=== PATIENT | female | born 1935 | race Caucasian/White ===

== ENCOUNTER 2018-02-19 05:41 | Inpatient (IN) | payer MEDICARE, OTHER ==
[2018-02-19] VITALS (13 sets, daily range): BP systolic 92–127; BP diastolic 60–87; BMI 24.7
[~2018-02-19] VITALS: Ht 157.5 cm; Wt 61.2 kg
--- NOTE | ~2018-02-19 | HEMODYNAMI ---
PATIENT:SRIRAM JEAN MEDICAL RECORD: [id number] : 37 [facility]# [id number] ADMISSION DATE: 02/19/18 Generatedon:02/19/20188:22 Patient name: SRIRAM JEAN Patient #: [id number] SSN: : 1935 Date of study: 02/19/2018 Page: Of Hemodynamic Procedure Report Patient Data Patient Demographics Procedure consent was obtained First Name: SRIRAM Gender: Female Last Name: TED : 1935 Patient #: [id number] Age: 82 year(s) Race: Unknown Additional ID: [id number] Contact details Address: [facility].UN[facility] State: [place] City: [place] Zip code: [address] Past Medical History Allergies: No known allergies Admission Admission Data Admission Date: 02/19/2018 Admission Time: 7:40 Room #: [facility] Lab Results Lab Result Date: 02/19/2018 Lab Result Time: 0:00 Biochemistry Name Units Result Min Max BUN mg/dl 19 --(----)*- 7 18 Creatinine mg/dl 1 --(--*-)-- 0.6 1.3 CBC Name Units Result Min Max Hemoglobin g/dl 11.9 *-(----)-- 13.5 17.5 Procedure Procedure Types Cath Procedure Diagnostic Procedure LHC LH w/Coronaries Sedation Charges Moderate Sedation up to 30 minutes PCI Procedure Coronary Stent Coronary Stent Initial Procedure Description Procedure Date Procedure Date: 02/19/2018 Procedure Start Time: 7:40 Procedure End Time: 8:22 Procedure Staff Name Function Morro Ash MD Performing Physician Shanthi Puente RT Scrub Nona Moss RT Monitor Jeremy Wren RN Nurse Procedure Data Cath Procedure Fluoroscopy Diagnostic fluoroscopy Total fluoroscopy Time: time: 10.5 min 10.5 min Diagnostic fluoroscopy Total fluoroscopy dose: dose: 1381 mGy 1381 mGy Contrast Material Contrast Material Type Amount (ml) Isovue 300 167 Entry Location Entry Primary Successful Side Size Upsize Upsize Entry Closure Succes sful Closure Location (Fr) 1 (Fr) 2 (Fr) Remarks Device Remarks Femoral Right 5 Fr 6 Fr Exoseal artery Short Estimated blood loss: 10 ml Diagnostic catheters Device Type Used For End Catheter Placement MULTIPACK JL 4.0 5Fr Left Coronary catheter Angiography MULTIPACK 3DRC 5Fr Right Coronary catheter Angiography MULTIPACK Pigtail 5 Fr LV Angiography catheter Procedure Complications No complications Procedure Medications Medication Administration Route Dosage Oxygen NC 2 l/min Lidocaine 2% added to field 20 Heparin Flush Bag added to field 2 bags (1000units/500ml NS) 0.9% NaCl I.V. 100 ml/hr Versed I.V. 0.5 mg Fentanyl I.V. 25 mcg Heparin Bolus I.V. 4000 units Nitroglycerin IC/IA I.C. 100 mcg Nitroglycerin IC/IA I.C. 100 mcg Integrilin (Bolus I.V. 4.5 ml 2mg/ml) Integrilin (Bolus wasted 5.25 ml 2mg/ml) Plavix P.O. 600 mg Hemodynamics Rest Heart Rate: 96 (bpm) Pressure Samples Time Site Value (mmHg) Purpose Heart Use Rate(bpm) 7:47 LV 107/8,32 EDP 92 7:48 AO 110/67(84) Pullback 91 7:48 LV 110/7,17 Pullback 91 Gradients Valve Time Site 1 Site 2 Mean SEP/DFP Peak To Heart Use (mmHg) (sec/min) Peak Rate (mmHg) (bpm) Aortic 7:48 LV AO 0 91 110/7,17 110/67(84) Calculations Valve P-P Mean Valve Index Valve Source Name Gradient Area Flow (cm2) Aortic 0 0 Snapshots Pre Cath Intra NCS Post Cath Vital Signs Time Heart Resp SPO2 etCO2 NIBP (mmHg) Rhythm Pain Sedation Rate (ipm) (%) (mmHg) Status Level (bpm) 7:34:15 97 22 98 16.6 107/76(104) NSR 0 (11) 10(A) , No pain 7:38:53 95 30 98 21.1 104/47(84) NSR 0 (11) 10(A) , No pain 7:43:26 95 25 90 27.2 102/69(82) NSR 0 (11) 10(A) , No pain 7:48:00 93 22 91 18.1 95/63(79) NSR 0 (11) 10(A) , No pain 7:52:33 95 21 94 24.2 101/63(82) NSR 0 (11) 10(A) , No pain 7:57:03 94 22 92 20.4 94/72(80) NSR 0 (11) 10(A) , No pain 8:01:35 94 22 94 24.1 100/55(73) NSR 0 (11) 9(A) , No pain 8:06:08 92 20 86 12 102/59(71) NSR 0 (11) 9(A) , No pain 8:10:40 93 19 93 29.5 100/62(83) NSR 0 (11) 9(A) , No pain 8:15:13 95 23 92 27.2 102/71(79) NSR 0 (11) 10(A) , No pain 8:20:12 97 27 94 23.4 Measuring NSR 0 (11) 10(A) , No pain 8:20:22 96 21 94 20.4 100/62(83) NSR 0 (11) 10(A) , No pain Medications Time Medication Route Dose Verified Delivered Reason Notes Effectiveness by by 7:32:10 Oxygen NC 2 Morro Jeremy used for l/min Mihir Wren nurse practitioner 7:33:17 Lidocaine 2% added 20ml Morro Jeremy for local to vial Mihir Wren anesthetic field RN 7:33:22 Heparin Flush added 2 Morro Jeremy used for Bag to bags Mihir Wren procedure (1000units/500ml field RN NS) 7:33:30 0.9% NaCl I.V. 100 Morro Jeremy Per physician ml/hr Mihir Wren RN 7:36:45 Versed I.V. 0.5 Morro Jeremy for sedation mg Mihir Wren RN 7:36:54 Fentanyl I.V. 25 Morro Jeremy for sedation mcg Mihir Wren RN 7:53:02 Heparin Bolus I.V. 4000 Morro Jeremy for units Mihir Wren anticoagulation RN 8:03:32 Nitroglycerin I.C. 100 Morro Morro for IC/IA mcg Mihir Ash MD vasodilation 8:12:57 Nitroglycerin I.C. 100 Morro Morro for IC/IA mcg Mihir Ash MD vasodilation 8:18:00 Integrilin I.V. 4.5 Morro Jeremy for (Bolus 2mg/ml) ml Mihir Wren antiplatelet RN therapy 8:18:12 Integrilin wasted 5.25 Morro Jeremy to sharp's (Bolus 2mg/ml) ml Mihir Wren RN 8:18:35 Plavix P.O. 600 Morro Jeremy for mg Mihir Wren antiplatelet RN therapy Procedure Log Time Note 7:15:01 Time tracking: Regular hours (M-F 7:00 - 5:00) 7:15:04 Plan of Care:Hemodynamics will remain stable., Cardiac rhythm will remain stable., Comfort level will be maintained., Respiratory function will remain adequate., Patient/ family verbilizes understanding of procedure., Procedure tolerated without complication., Recovers from procedure without complications.. 7:15:05 Signed procedure consent form obtained from patient. 7:15:10 H&P Date Dictated: 02/19/2018 ER History on chart.. 7:16:19 Jeremy Wren RN sent for patient. Start room use. 7:18:04 Patient allergic to No known allergies 7:20:27 Lab Result : Creatinine 1 mg/dl 7:20:27 Lab Result : BUN 19 mg/dl 7:20:27 Lab Result : Hemoglobin 11.9 g/dl 7:23:42 Patient received from ED to CCL 1 Alert and oriented. Tansferred to table in Supine position. 7:23:43 Warm blankets applied, and nena hugger turned on for patient comfort. 7:23:44 Correct patient and procedure confirmed by team. 7:23:45 ECG and BP/O2 sat monitors applied to patient. 7:32:10 Oxygen 2 l/min NC was administered by Jeremy Wren RN; used for procedure; 7:33:17 Lidocaine 2% 20ml vial added to field was administered by Jeremy Wren RN; for local anesthetic; 7:33:22 Heparin Flush Bag (1000units/500ml NS) 2 bags added to field was administered by Jeremy Wren RN; used for procedure; 7:33:30 0.9% NaCl 100 ml/hr I.V. was administered by Jeremy Wren RN; Per physician; 7:33:30 Vital chart was started 7:34:07 Rhythm: sinus rhythm 7:34:11 Pre-procedure instructions explained to patient. 7:34:12 Pre-op teaching completed and patient verbalized understanding. 7:34:23 Family unavailable. 7:34:25 Patient NPO since Midnight. 7:34:31 Is the patient allergic to Iodine/contrast media? No. 7:34:33 Is patient on blood thinner?No 7:34:37 Patient diabetic? No. 7:34:46 Previous problem with sedation/anesthesia? No ? 7:34:48 Snore? No 7:34:48 Sleep apnea? No 7:34:49 Deviated septum? No 7:34:50 Opens mouth fully? Yes 7:34:51 Sticks out tongue? Yes 7:34:52 Airway obstruction? No ? 7:34:55 Dentures? Yes IN 7:34:59 Pre procedure: right dorsailis pedis pulse 1+ Palpable, but thready & weak; easily obliterated 7:35:01 Patient pain scale 0/10 ?. 7:35:12 IV patent on arrival in right antecubital with 0.9% NaCl at [facility]. 7:35:15 Lab results completed and on chart. 7:35:17 Right groin area was prepped with chlora-prep and draped in sterile fashion 7:35:18 Alarms reviewed by R. N. 7:35:18 Sharps counted by scrub and verified by R.N. 7:35:20 Final Timeout: patient, procedure, and site verified with staff and physician. All members of the team are in agreement. 7:35:21 Right groin site verified by team. 7:35:26 Physical assessment completed. ASA score P 2 - A patient with mild systemic disease as per Morro Ash MD. 7:35:30 Sedation plan: IV Moderate Sedation Medication:Versed, Fentanyl 7:36:45 Versed 0.5 mg I.V. was administered by Jeremy Wren RN; for sedation; 7:36:49 Use device set Femoral Dx 7:36:50 ACIST Syringe (42603) opened to sterile field. 7:36:50 Bag Decanter (2002S) opened to sterile field. 7:36:51 Medline Cath Pack ([id number]) opened to sterile field. 7:36:52 DIAGNOSTIC WIRE .035 260cm J wire (790815) opened to sterile field. 7:36:53 ACIST Hand Control (70141) opened to sterile field. 7:36:54 Fentanyl 25 mcg I.V. was administered by Jeremy Wren RN; for sedation; 7:36:54 ACIST Manifold (93299) opened to sterile field. 7:36:55 DIAGNOSTIC Multipack 5Fr catheter set (UI3222) opened to sterile field. 7:36:56 Tegaderm 4 x 4 (1626W) opened to sterile field. 7:36:57 SHEATH Prelude 5Fr 0.035 (DLN-8P-28-035) opened to sterile field. 7:40:26 Procedure started. 7:40:26 Full Disclosure recording started 7:40:32 Local anesthetic to right femoral artery with Lidocaine 2% by Morro Ash MD.INITIAL ACCESS ONLY 7:40:43 A 5 Fr sheath was inserted into the Right Femoral artery 7:40:45 Zero performed for pressure channel P1 7:40:57 Zero performed for pressure channel P1 7:43:05 A MULTIPACK JL 4.0 5Fr catheter was advanced over the wire and used for Left Coronary Angiography. 7:43:26 Baseline sample Acquired. 7:44:40 Catheter removed. 7:44:55 A MULTIPACK 3DRC 5Fr catheter was advanced over the wire and used for Right Coronary Angiography. 7:46:24 Catheter removed. 7:46:33 A MULTIPACK Pigtail 5 Fr catheter was advanced over the wire and used for LV Angiography. 7:46:37 Use device set ASH PCI 7:46:39 SHEATH Prelude 6Fr 0.035 (JPN-6R-22-035) opened to sterile field. 7:46:43 TUBING High Pressure Extension Tubing (Ash) ([id number]) opened to sterile field. 7:46:44 INFLATOR Merit BasixCompak (UJ2975) opened to sterile field. 7:46:46 BMW 300cm [place] 2 J wire ([id number]) opened to sterile field. 7:46:50 GUIDE 6FR XBLAD 3.5 catheter ([id number]) opened to sterile field. 7:48:20 LV gram done using HILL 7:48:25 EF : 35 % 7:48:27 Injector settings: Ml/sec: 10, Volume: 20, 7:49:05 Catheter removed. 7:49:13 Sheath upsized to a 6 Fr Short. 7:51:16 6 Fr XBLAD 3.5 guide catheter was inserted over the wire 7:52:42 BMW wire advanced. 7:53:02 Heparin Bolus 4000 units I.V. was administered by Jeremy Wren RN; for anticoagulation; 7:57:58 Inflate balloon Inflation number: 1 A EMERGE OTW 2.0 x 15 balloon ([id number]) was prepped and advanced across the Prox LAD, then inflated to 10 KARLA for 0:24 (min:sec). 8:00:01 Balloon removed over the wire. 8:02:31 Place stent Inflation Number: 2 A INTEGRITY OTW 2.75 X 14 stent ([id number]) was prepped and advanced across the Prox LAD. The stent was deployed at 12 KARLA for 0:10 (min:sec). 8:03:32 Nitroglycerin IC/IA 100 mcg I.C. was administered by Morro Ash MD; for vasodilation; 8:06:54 Stent catheter was removed intact over wire. 8:11:41 Place stent Inflation Number: 3 A INTEGRITY OTW 2.25 X 14 stent ([id number]) was prepped and advanced across the Prox LAD. The stent was deployed at 10 KARLA for 0:17 (min:sec). 8:12:14 Stent catheter was removed intact over wire. 8:12:57 Nitroglycerin IC/IA 100 mcg I.C. was administered by Morro Ash MD; for vasodilation; 8:13:47 Wire removed. 8:13:48 Guide catheter removed. 8:13:56 Sheath removed intact; hemostasis achieved with Exoseal to the Right Femoral artery. 8:14:02 EXOSEAL 6Fr (EX600) opened to sterile field. 8:14:06 Procedure ended.(Physican Out) 8:14:22 Fluoroscopy time 10.50 minutes. 8:14:26 Flurop Dose total: 1381 8:: Fluoroscopy dose: 1381 mGy 8:14:32 Contrast amount:Isovue 300 167ml. 8:14:33 Sharps counted by scrub and verified by R.N. 8:14:34 Insertion/operative site no bleeding no hematoma. 8:14:37 Post-op/insertion site Right Femoral artery dressed using a 4 x 4 and Tegaderm. 8:15:25 Post right femoral artery:stable, clean and dry 8:15:27 Post Procedure Pulses reassessed and unchanged 8:15:46 Post-procedure physical assessment completed. ASA score P 2 - A patient with mild systemic disease as per Morro Ash MD. 8:15:48 Post procedure rhythm: unchanged. 8:15:51 Estimated blood loss: 10 ml 8:15:52 Post procedure instruction explained to patient.Patient verbalizes understanding. 8:15:53 Patient needs reinforcement of post procedure teaching. 8:16:53 Procedure type changed to Cath procedure, Diagnostic procedure, LHC, LHC w/Coronaries, Sedation Charges, Moderate Sedation up to 30 minutes, PCI procedure, Coronary Stent, Coronary Stent Initial 8:17:22 Procedure Complication : No complications 8:17:24 See physician's report for complete and final results. 8:18:00 Integrilin (Bolus 2mg/ml) 4.5 ml I.V. was administered by Jeremy Wren RN; for antiplatelet therapy; 8:18:12 Integrilin (Bolus 2mg/ml) 5.25 ml wasted was administered by Jeremy Wren RN; to sharp's; 8:18:35 Plavix 600 mg P.O. was administered by Jeremy Wren RN; for antiplatelet therapy; 8:18:47 Procedure and supply charges have been captured, reviewed, submitted and are correct. 8:20:35 Vital chart was stopped 8:22:08 Report given to PCU. 8:22:11 Patient transfered to PCU with Bed. 8:22:13 Procedure ended. 8:22:13 Full Disclosure recording stopped 8:22:17 End room use (Document Last) Intervention Summary Intervention Notes Time ActionType Lesion and Equipment Action# Pressure Duration Attributes Used 7:57:58 Inflate Prox LAD EMERGE OTW 1 10 00:24 balloon 2.0 x 15 balloon ([id number]) 8:02:31 Place stent Prox LAD INTEGRITY 2 12 00:10 OTW 2.75 X 14 stent ([id number]) 8:11:41 Place stent Prox LAD INTEGRITY 3 10 00:17 OTW 2.25 X 14 stent ([id number]) Device Usage Item Name Manufacture Quantity Catalog Number Hospital Part Current Minimal Lot# / Charge Number Stock Stock Serial# Code ACIST Syringe Acist 1 81429 868692 645982 933549 20 (45333) [employer] Bag Decanter Microtek 1 247466 43086 326509 5 () Medical Inc. Medline Cath Cardinal 1 [id number] 374606 92448 589123 5 WHI Solution Health ([id number]) DIAGNOSTIC WIRE [facility] [place] 1 423783 869605 981506 026313 30 .035 260cm J wire (536324) ACIST Hand Acist 1 74437 954142 932090 428125 5 Control (13363) [employer] Inc ACIST Manifold Acist 1 21234 012204 234195 301401 5 (10512) [employer] Inc DIAGNOSTIC Cardinal 1 BA4123 023423 41912 058383 30 Multipack 5Fr Health catheter set (FG8155) Tegaderm 4 x 4 3M 1 1626W 129156 456245 261333 5 (1626W) SHEATH Prelude Merit 1 LJR-6U-72-035 549910 618002 294963 5 5Fr 0.035 Medical (RYH-1V-15-035) MULTIPACK JL Cardinal 1 217677 5 4.0 5Fr Health catheter MULTIPACK 3DRC Cardinal 1 655082 5 5Fr catheter Health MULTIPACK Cardinal 1 903590 5 Pigtail 5 Fr Health catheter SHEATH Prelude Merit 1 YVG-4K-34-35 912753 5357946 181153 5 6Fr 0.035 Medical (CQT-9Q-06-035) TUBING High Merit 1 [id number] 520132 51647 199362 10 Pressure Medical Extension Tubing (Ash) ([id number]) INFLATOR Merit Merit 1 QZ8710 921006 082634 513345 15 BasixCompak Medical (RI0385) BMW 300cm Baires 1 [id number] 794109 092313 792293 5 [place] 2 J Vascular wire (3710072A) GUIDE 6FR XBLAD Cardinal 1 [id number] 865701 852786 669655 10 3.5 catheter Health (82278844) EMERGE OTW 2.0 [place] 1 [id number] 258150 545780 181808 5 [id number] x 15 balloon Scientific ([id number]) INTEGRITY OTW Medtronic 1 [id number] 197963 409243 5 [id number] 2.75 X 14 stent ([id number]) INTEGRITY OTW Medtronic 1 [id number] 496124 233178 1 [id number] 2.25 X 14 stent ([id number]) EXOSEAL 6Fr Cardinal 1 EX600 785478 472059 303878 10 (EX600) Health Signature Audit Reynolds Stage Time Signature Unsigned Intra-Procedure 02/19/2018 Nona 8:22:31 AM Counts RT(R) Signatures Monitor : Nona Signature : Counts RT Date : Time : [address] [address]
[2018-02-19] MEDS ORDERED: [UNRECOGNIZED DRUG - REMARK] (06:09)
[2018-02-19] MEDS ORDERED: MED FOR RESTLESS LEG (06:09)
[2018-02-19 06:41] LABS: BASOPHILS 0.3 % (0-2); EOSINOPHILS 3.9 % (0-7); HEMATOCRIT 36.2 % (36.0-48.0); HEMOGLOBIN 11.9 g/dL (12-16); IMMATURE GRANULOCYTES 0.3 % (0-5); LYMPHOCYTES 22.3 % (15-50); MCH 33.1 pg (26.0-34.0); MCHC 32.9 g/dL (31.0-37.0); MCV 100.8 fL (80.0-100.0); MEAN PLATELET VOLUME 10.5 fL (7.4-10.4); NEUTROPHILS 65.2 % (40-80); PLATELET COUNT 224 10x3/uL (130-400); RBC 3.59 10x6/uL (4.00-5.40); RDW 13.9 % (11.5-14.5); WBC 6.5 10x3/uL (4.8-10.8)
[2018-02-19 06:51] LABS: PROTIME 12.8 SECONDS (11.6-15.0)
[2018-02-19 07:00] LABS: ALBUMIN 2.8 g/dL (3.4-5.0); ALKALINE PHOSPHATASE 110 U/L (46-116); ALT (SGPT) 27 U/L (10-68); BILIRUBIN - TOTAL 0.16 mg/dL (0.2-1.3); CALC OSMOLALITY 285 mosm/kg (275-300); CALCIUM 8.8 mg/dL (8.5-10.1); CARBON DIOXIDE 23.9 mmol/L (21.0-32.0); CHLORIDE - SERUM 107 mmol/L (98-107); GLUCOSE 117 mg/dL (74-106); PROTEIN - SERUM 6.5 g/dL (6.4-8.2); SODIUM 142 mmol/L (136-145); UREA NITROGEN 19 mg/dL (7-18); eGFR NON AFRICAN AMERICAN 56 mL/min (90-120)
[2018-02-19 07:15] LABS: CKMB 5.3 U/L (0.0-3.6); CREATINE KINASE 234 UL (21-215)
[2018-02-19 07:18] LABS: PRO BNP 57403 pg/mL (0-450)
[2018-02-19 07:20] LABS: TROPONIN-I 10.827 ng/mL (0.000-0.060)
[2018-02-19] MEDS ORDERED: KLONOPIN0.5 MG PO (08:43)
[2018-02-19] MEDS ORDERED: VIBRAMYCIN50 MG PO (08:44)
[2018-02-19] MEDS ORDERED: SINEMET 25-1001 EACH PO (08:44)
[2018-02-19] MEDS ORDERED: MOBIC7.5 MG PO (08:45)
[2018-02-19] MEDS ORDERED: FLUTICASONE PRO16 GM NASAL (08:45)
[2018-02-19] MEDS ORDERED: PROTONIX40 MG PO (08:46)
[2018-02-19] MEDS ORDERED: CLARITIN-D1 TAB.SR . PO (08:47)
[2018-02-20 00:56] VITALS: BP 115/71
[2018-02-20 06:10] VITALS: BP 124/89
[2018-02-20 08:25] VITALS: BP 129/78
[2018-02-20] MEDS ORDERED: LEXAPRO20 MG PO (08:52)
[2018-02-20] MEDS ORDERED: KEFLEX250 MG PO (08:54)
[2018-02-20 11:54] VITALS: BP 105/64
[2018-02-20 12:43] VITALS: Ht 157.5 cm; Wt 61.2 kg
[2018-02-20 20:00] VITALS: BP 100/55
[2018-02-20 23:33] VITALS: BP 92/58
[2018-02-21 04:00] VITALS: BP 100/67
[2018-02-21 07:45] VITALS: BP 103/68
== END 2018-02-21 11:54 | disposition home or self-care (01) | DRG 249 ==
LOC: D.ER 05:41 → D.EDHOLD 07:40 → OBSVTIME 07:42 → D.EDHOLD 08:25 → D.M2 08:25
PROVIDERS: Family Medicine; Internal Medicine Cardiovascular Disease
PROC: B2111ZZ Fluoroscopy of Multiple Coronary Arteries using Low Osmolar Contrast (ICD-10-PCS; 2018-02-19)
PROC: B2151ZZ Fluoroscopy of Left Heart using Low Osmolar Contrast (ICD-10-PCS; 2018-02-19)
PROC: 02703EZ Dilation of Coronary Artery, One Artery with Two Intraluminal Devices, Percutaneous Approach (ICD-10-PCS; principal; 2018-02-19 07:30)
PROC: 4A023N7 Measurement of Cardiac Sampling and Pressure, Left Heart, Percutaneous Approach (ICD-10-PCS; 2018-02-19 07:30)
DX: I21.4 Non-ST elevation (NSTEMI) myocardial infarction (principal); K21.9 Gastro-esophageal reflux disease without esophagitis; G25.81 Restless legs syndrome; I45.10 Unspecified right bundle-branch block; I25.10 Atherosclerotic heart disease of native coronary artery without angina pectoris

== ENCOUNTER 2018-03-23 22:18 | Inpatient (IN) | payer MEDICARE, OTHER ==
[~2018-03-23] VITALS: Ht 157.5 cm; Wt 60.8 kg
--- NOTE | ~2018-03-23 | HEMODYNAMI ---
PATIENT:SRIRAM JEAN MEDICAL RECORD: [id number] : 36 LOCATION:[place] [address] ADMISSION DATE: 03/23/18 Generatedon:03/24/201812:27 Patient name: SRIRAM JEAN Patient #: [id number] SSN: : 1935 Date of study: 03/24/2018 Page: Of Hemodynamic Procedure Report Patient Data Patient Demographics Procedure consent was obtained First Name: SRIRAM Gender: Female Last Name: TED : 1935 Patient #: [id number] Age: 82 year(s) Race: Unknown Additional ID: [id number] Contact details [address]: [address] [place] [address] [place] State: [place] City: [place] Zip code: [address] Past Medical History Allergies: No known allergies Admission Admission Data Admission Date: 03/23/2018 Admission Time: 23:14 Room #: [facility] Height (in.): 62 BSA: 1.61 (m2) Height (cm.): 157.48 BMI: 24.6 (kg/m2) Weight (lbs.): 134.48 Weight (kg.): 61 Lab Results Lab Result Date: 03/24/2018 Lab Result Time: 0:00 Biochemistry Name Units Result Min Max BUN mg/dl 20 --(----)*- 7 18 Creatinine mg/dl 1.2 --(---*)-- 0.6 1.3 Troponin l ng/ml 493.369 --(----)-* 0 0.06 CBC Name Units Result Min Max Hemoglobin g/dl 15.8 --(--*-)-- 13.5 17.5 Platelets 10^3/l 246 --(-*--)-- 130 400 Coagulation Name Units Result Min Max INR units 0.96 --(-*--)-- 0.85 1.17 PT sec 12.4 --(*---)-- 11.6 15 Procedure Procedure Types Cath Procedure Diagnostic Procedure [facility] w/Coronaries Procedure Description Procedure Date Procedure Date: 03/24/2018 Procedure Start Time: 12:07 Procedure End Time: 12:21 Procedure Staff Name Function Jerel Lan MD Performing Physician Rigoberto Daniel RT Monitor Wil Alexandra RT Scrub Nirmala White RN Nurse Jeremy Wren RN Nurse Germain Otto RT Scrub Procedure Data Cath Procedure Fluoroscopy Diagnostic fluoroscopy Total fluoroscopy Time: 1.6 time: 1.6 min min Diagnostic fluoroscopy Total fluoroscopy dose: 314 dose: 314 mGy mGy Contrast Material Contrast Material Type Amount (ml) Isovue 300 66 Entry Location Entry Primary Successful Side Size Upsize Upsize Entry Closure Succes sful Closure Location (Fr) 1 (Fr) 2 (Fr) Remarks Device Remarks Femoral Right 4 Fr 5 Fr Exoseal artery Diagnostic catheters Device Type Used For End Catheter Placement MULTIPACK JL 4.0 5Fr Left Coronary catheter Angiography MULTIPACK 3DRC 5Fr Right Coronary catheter Angiography MULTIPACK Pigtail 5 Fr LV Angiography catheter Procedure Complications No complications Procedure Medications Medication Administration Route Dosage Heparin Drip I.V. drip (79486ggjds/250 D5W) Oxygen etCO2 Nasal cannula 2 l/min Lidocaine 2% added to field 20 Heparin Flush Bag added to field 2 bags (1000units/500ml NS) 0.9% NaCl I.V. 100 ml/hr Versed I.V. 1 mg Fentanyl I.V. 25 mcg Versed I.V. 1 mg Hemodynamics Rest BSA: 1.61 (m2) HGB: 15.8 (g/dl) O2 Consumption: Estimated: 166.73 (ml/min) O2 Co nsumption indexed: Estimated:103.56 (ml/min/m) Heart Rate: 107 (bpm) Pressure Samples Time Site Value (mmHg) Purpose Heart Use Rate(bpm) 12:15 LV 112/-1,11 EDP 93 12:16 AO 101/58(78) Pullback 94 12:16 LV 100/11,12 Pullback 94 Gradients Valve Time Site 1 Site 2 Mean SEP/DFP Peak To Heart Use (mmHg) (sec/min) Peak Rate (mmHg) (bpm) Aortic 12:16 LV AO 0 16 0 94 100/11,12 101/58(78) Calculations Valve P-P Mean Valve Index Valve Source Name Gradient Area Flow (cm2) Aortic 0 0 0 0 Snapshots Pre Cath Intra NCS Post Cath Vital Signs Time Heart Resp SPO2 etCO2 NIBP (mmHg) Rhythm Pain Sedation Rate (ipm) (%) (mmHg) Status Level (bpm) 11:52:18 106 13 98 0 128/94(115) NSR 0 (11) 10(A) , No pain 11:56:55 97 22 100 0 117/73(96) NSR 0 (11) 10(A) , No pain 12:01:31 96 18 97 0 105/67(88) NSR 0 (11) 10(A) , No pain 12:06:08 95 10 97 0 104/66(85) NSR 0 (11) 10(A) , No pain 12:10:40 92 22 96 0 105/70(88) NSR 0 (11) 10(A) , No pain 12:15:13 93 19 98 0 108/71(81) NSR 0 (11) 10(A) , No pain 12:19:45 94 12 98 0 115/77(101) NSR 0 (11) 10(A) , No pain Medications Time Medication Route Dose Verified Delivered Reason Not es Effectiveness by by 11:50:58 Heparin Drip I.V. discontinued Jerel Buffie Per (75141echtk/250 drip Riky White RN physician D5W) 11:57:15 Oxygen etCO2 2 l/min Jerel Buffie used for Nasal Riky White RN procedure cannula 11:57:23 Lidocaine 2% added 20ml vial Jerel Jerel for local to Riky Lan MD anesthetic field CEBALLOS 11:57:30 Heparin Flush added 2 bags Jerel Jerel used for Bag to Riky Lan MD procedure (1000units/500ml field CEBALLOS NS) 11:57:38 0.9% NaCl I.V. 100 ml/hr Jreel Buffie Per Riky White RN physician 12:02:51 Versed I.V. 1 mg Jerel Buffie for Rkiy White RN sedation 12:02:59 Fentanyl I.V. 25 mcg Jerel Buffie for Riky White RN sedation 12:04:01 Versed I.V. 1 mg Jerel Buffie for Riky White RN sedation Procedure Log Time Note 11:30:35 Rigoberto Daniel RT(R) (CV) sent for patient. Start room use. 11:37:37 Time tracking: Regular hours (M-F 7:00 - 5:00) 11:37:42 Plan of Care:Hemodynamics will remain stable., Cardiac rhythm will remain stable., Comfort level will be maintained., Respiratory function will remain adequate., Patient/ family verbilizes understanding of procedure., Procedure tolerated without complication., Recovers from procedure without complications.. 11:41:07 Patient Weight : 134.48 lbs 11:41:11 Patient Height : 62 inches 11:43:12 Lab Result : Platelets 246 10^3/l 11:43:12 Lab Result : PT 12.4 sec 11:43:12 Lab Result : INR 0.96 units 11:43:12 Lab Result : Hemoglobin 15.8 g/dl :43:12 Lab Result : BUN 20 mg/dl :43:12 Lab Result : Creatinine 1.2 mg/dl 11:43:12 Lab Result : Troponin l 493.369 ng/ml 11:47:25 Patient received from CVICU to CCL 1 Alert and oriented. Tansferred to table in Supine position. 11:47:27 Warm blankets applied, and nena hugger turned on for patient comfort. 11:47:28 Correct patient and procedure confirmed by team. 11:47:29 Signed procedure consent form obtained from patient. 11:47:30 ECG and BP/O2 sat monitors applied to patient. 11:50:58 Heparin Drip (65007idlmw/250 D5W) discontinued I.V. drip was administered by Nirmala White RN; Per physician; 11:51:32 Vital chart was started 11:55:41 Baseline sample Acquired. 11:55:48 Rhythm: sinus rhythm 11:55:51 Full Disclosure recording started 11:56:04 H&P Date Dictated: 03/24/2018 New H&P dictated by physician.. 11:56:07 Pre-procedure instructions explained to patient. 11:56:09 Family in waiting room. 11:56:25 Patient NPO since Breakfast. 11:56:33 Patient allergic to No known allergies 11:56:39 Is the patient allergic to Iodine/contrast media? No. 11:56:42 Is patient on blood thinner?Yes 11:56:45 ACC The patient was administered the following blood thiners within the last 24 hours: ACCPlavix 11:56:48 Patient diabetic? No. 11:56:51 ----Pre-sedation anethsthesia assessment.---- 11:56:53 Previous problem with sedation/anesthesia? No ? 11:56:56 Snore? No 11:56:58 Sleep apnea? No 11:57:10 Deviated septum? No 11:57:12 Opens mouth fully? Yes 11:57:13 Sticks out tongue? Yes 11:57:15 Oxygen 2 l/min etCO2 Nasal cannula was administered by Nirmala White RN; used for procedure; 11:57:15 Airway obstruction? No ? 11:57:19 Dentures? No ? 11:57:23 Lidocaine 2% 20ml vial added to field was administered by Jerel Lan MD; for local anesthetic; 11:57:24 Pre procedure: right dorsailis pedis pulse 1+ Palpable, but thready & weak; easily obliterated 11:57:27 Patient pain scale 0/10 ?. 11:57:30 Heparin Flush Bag (1000units/500ml NS) 2 bags added to field was administered by Jerel Lan MD; used for procedure; 11:57:38 0.9% NaCl 100 ml/hr I.V. was administered by Nirmala White RN; Per physician; 11:57:41 IV patent on arrival in left forearm with 0.9% NaCl at [facility]. 11:57:57 Lab results completed and on chart. 11:58:03 Right groin area was prepped with chlora-prep and draped in sterile fashion 11:58:04 Alarms reviewed by R. N. 11:58:05 Sharps counted by scrub and verified by R.N. 11:58:07 Physician arrived 12:01:09 --------ALL STOP TIME OUT------ 12:01:10 Final Timeout: patient, procedure, and site verified with staff and physician. All members of the team are in agreement. 12:01:32 Right groin site verified by team. 12:01:37 Physical assessment completed. ASA score P 2 - A patient with mild systemic disease as per Jerel Lan MD. 12:01:43 Sedation plan: IV Moderate Sedation Medication:Versed, Fentanyl 12:02:51 Versed 1 mg I.V. was administered by Nirmala White RN; for sedation; 12:02:51 Sergo Kothari RT monitor in for Rigoberto Daniel 12:02:59 Fentanyl 25 mcg I.V. was administered by Nirmala White RN; for sedation; 12:04:01 Versed 1 mg I.V. was administered by Nirmala White RN; for sedation; 12:06:18 Use device set Femoral Dx 12:06:20 ACIST Syringe (81512) opened to sterile field. 12:06:20 Bag Decanter (2002S) opened to sterile field. 12:06:21 Medline Cath Pack ([id number]) opened to sterile field. 12:06:22 DIAGNOSTIC WIRE .035 260cm J wire (491629) opened to sterile field. 12:06:25 ACIST Hand Control (04780) opened to sterile field. 12:06:26 ACIST Manifold (27205) opened to sterile field. 12:06:27 DIAGNOSTIC Multipack 5Fr catheter set (LL1893) opened to sterile field. 12:06:29 Tegaderm 4 x 4 (1626W) opened to sterile field. 12:06:30 PERCUTANEOUS ENTRY 19GA needle opened to sterile field. 12:06:32 MICROPUNCTURE 4FR Better Place (Q27166) opened to sterile field. 12:06:34 EXOSEAL 5Fr (EX500) opened to sterile field. 12:07:02 SHEATH Prelude 5Fr 0.035 (WVU-8V-25-035) opened to sterile field. 12:07:07 Procedure started. 12:07:15 Local anesthetic to right femoral artery with Lidocaine 2% by Jerel Lan MD.INITIAL ACCESS ONLY 12:07:17 Access obtained with 4Fr micropunture. 12:07:28 A 4 Fr sheath was inserted into the Right Femoral artery 12:07:28 Sheath upsized to a 5 Fr. 12:08:29 A MULTIPACK JL 4.0 5Fr catheter was advanced over the wire and used for Left Coronary Angiography. 12:08:38 LCA angiography performed. 12:10:52 Catheter exchanged over wire. 12:11:24 A MULTIPACK 3DRC 5Fr catheter was advanced over the wire and used for Right Coronary Angiography. 12:11:29 RCA angiography performed. 12:12:49 Catheter exchanged over wire. 12:13:45 A MULTIPACK Pigtail 5 Fr catheter was advanced over the wire and used for LV Angiography. 12:14:38 LV angiography performed. 12:14:40 LV gram done using HILL 12:14:43 LV hemodynamics recorded. 12:15:49 Injector settings: Ml/sec: 12, Volume: 8, 12:16:59 Catheter removed. 12:17:10 Sheath removed intact; hemostasis achieved with Exoseal to the Right Femoral artery. 12:17:12 Procedure ended.(Physican Out) 12:17:23 Fluoroscopy time 01.60 minutes. 12:17:27 Fluoroscopy dose: 314 mGy 12:17:27 Flurop Dose total: 314 12:17:55 Contrast amount:Isovue 300 66ml. 12:17:58 Sharps counted by scrub and verified by R.N. 12:18:01 Insertion/operative site no bleeding no hematoma. 12:18:05 Post-op/insertion site Right Femoral artery dressed using a 4 x 4 and Tegaderm. 12:18:08 Post right femoral artery:stable 12:18:09 Post Procedure Pulses reassessed and unchanged 12:18:12 Post procedure: right dorsailis pedis pulse 2+ Normal; easily identifiable; not easily obliterated. 12:18:19 Post procedure rhythm: sinus tachycardia 12:19:12 Post procedure instruction explained to patient.Patient verbalizes understanding. 12:19:12 Patient needs reinforcement of post procedure teaching. 12:19:20 Procedure Complication : No complications 12:20:55 Vital chart was stopped 12:21:08 See physician's report for complete and final results. 12:21:10 Report given to CVICU. 12:21:23 Patient transfered to CVICU with Bed. 12:21:26 Procedure ended. 12:21:26 Full Disclosure recording stopped 12:21:29 End room use (Document Last) Device Usage Item Name Manufacture Quantity Catalog Number Hospital Part Current M inimal Lot# / Charge Number Stock Stock Serial# Code ACIST Syringe Acist 1 85096 314887 173686 470212 2 0 (82752) [employer] Inc Bag Decanter Microtek 1 201894 01521 539965 5 () Medical Inc. Medline Cath Cardinal 1 [id number] 398002 82899 162952 5 Tellwiki [facility] ([id number]) DIAGNOSTIC WIRE [facility] [place] 1 535606 863760 776910 188901 3 0 .035 260cm J wire (482203) ACIST Hand Acist 1 80181 983599 401965 101388 5 Control (01444) [employer] Inc ACIST Manifold Acist 1 77502 947434 042366 106766 5 (53661) Medical [employer] Inc DIAGNOSTIC Cardinal 1 WB5522 668476 20664 510098 3 0 Multipack 5Fr Health catheter set (VE6678) Tegaderm 4 x 4 3M 1 1626W 349557 801361 841030 5 (1626W) PERCUTANEOUS Cook Medical 1 U68532 775386 249398 5 ENTRY 19GA needle MICROPUNCTURE Cook Medical 1 Z67300 905441 928521 545360 5 4FR Cook (B11360) EXOSEAL 5Fr Cardinal 1 EX500 845479 272878 641171 1 0 (EX500) Health SHEATH Prelude Merit 1 NJJ-2Q-47-035 944463 738199 780037 5 5Fr 0.035 Medical (UIE-4I-44-035) MULTIPACK JL Cardinal 1 664707 5 4.0 5Fr Health catheter MULTIPACK 3DRC Cardinal 1 630915 5 5Fr catheter Health MULTIPACK Cardinal 1 516324 5 Pigtail 5 Fr Health catheter Signature Audit [place] Stage Time Signature Unsigned Intra-Procedure 03/24/2018 Germain Otto 12:27:24 PM RT(R) Signatures Monitor : Rigoberto Daniel RT Signature : Date : Time : [facility] [address] [place] [address]
--- NOTE | ~2018-03-23 | OP ---
PATIENT NAME: SRIRAM JEAN MEDICAL RECORD: [id number] :36 LOCATION:D.[place] D.2115 ADMISSION DATE:03/23/18 SURGEON: CATHY JONES MD DATE OF OPERATION: 03/24/2018 PROCEDURE: Left heart cath, LV gram, coronary angiogram. DESCRIPTION OF PROCEDURE: The patient was brought to cardiac catheterization lab in stable condition. Both groins were sterilely prepped and draped. The patient had a 6-Sammarinese sheath placed in right common femoral artery in retrograde fashion using modified Seldinger technique. We then intubated the left coronary artery, the right coronary artery, and the left ventricular cavity. FINDINGS: 1. Left main is normal. 2. The LAD has 2 stents that are patent. The flow is JOSE 3. She has some layering of what appears to be mild thrombus in the mid vessel upon a 50% stenosis, but the JOSE flow grade is normal. The perfusion grade; however, is absent. 3. The circumflex is nondominant with mild plaquing. 4. The RCA is a dominant vessel with a mid 60% to 70% stenosis. There is no collateralization seen to go into the LAD distribution. 5. Hemodynamics: The patient has case anterior apical and inferior apical dyskinesis and even aneurysmal dilatation. Overall, the ejection fraction is 20% to 25%. EDP was actually normal to low. The patient had what appeared to be possible thrombus at the anterior apical area of the left ventricular cavity. There is no gradient across the aortic valve. IMPRESSION: The patient had successful TPA yesterday and had recanalized the vessel. Perfusion grade; however, is very poor. It appears that this may be more of a subacute process upon acute process with enzyme elevations consistent with a longstanding significant myocardial infarction. The patient does have a history of hypertension and left ventricular hypertrophy, which may account for some of the remarkable elevation of troponins. She is not in shock. She does not manifest any shock symptoms and at this point in time would not be beneficial for an intraaortic balloon pump. We will continue medical management, supportive care with potential of grave complications still there. We will watch closely over the next 2-3 days for possible free wall rupture. I spoke to the family about this and she is understanding it could be quite serious in nature and she has actually made herself a DNR. TRANSINT:[id number] Voice Confirmation ID: [id number] DOCUMENT ID: [id number] CATHY JONES MD at 0841 CC: [id number] DICTATION DATE: 03/26/18 1231 MANAGER RESTAURANT: 03/26/18 1407 DIS IN 03/27/18 [place] [id number] [place] [id number]
--- NOTE | ~2018-03-23 | EC ---
PATIENT:SRIRAM JEAN DATE OF SERVICE: 03/23/18 SEX: F MEDICAL RECORD: [id number] DATE OF : 36 LOCATION:D.M2 D.211 AGE OF PATIENT: 82 ADMISSION DATE: 03/23/18 REFERRING PHYSICIAN: INTERPRETING PHYSICIAN: CATHY JONES MD ECHOCARDIOGRAM REPORT ECHO CHARGES 4 ECHO COMPLETE Date: 03/24 CLINICAL DIAGNOSIS: ME ECHOCARDIOGRAPHIC MEASUREMENTS (adult normal given) AC root (d.<3.7cm) 3.8 cm LV Septum d (<1.2 cm> 1.2 cm Valve Excursion 1.6 cm LV Septum (systole) 1.3 cm Left Atria (s.<4.0cm> 3.2 cm LVPW d(<1.2cm) 1.4 cm RV (d.<2.3cm) 3.1 cm LVPW (sytole) 1.5 cm LV diastole(<5.6CM) 5.6 cm MV E-F(>70mm/sec) cm LV systole 4.8 cm LVOT Diameter 2.1 cm MV exc.(>10mm) 1.0 cm Est.ejection fraction (50-75%) % DOPPLER: LVIT cm/sec A 36.0 cm/sec E 98.0 cm/sec LA cm/sec RVSP 23 mmHg LVOT 80 cm/sec AOP1/2T m/s Asc. Ao 99 cm/sec RVOT 76 cm/sec RA cm/sec PA 91 cm/sec AV Gradient Peak 3.92 mmHg AV Mean 2.23 mmHg AV Area 2.8 cm MV Gradient Peak 5.94 mmHg MV Mean 1.66 mmHg MV Area cm COMMENTS: Director Of Family Service [facility]: 2 MICHELLE VILLARREAL Transfer Engineer: 4 Dr. Jones TAPE# PACS Pericardial Effusion N DATE OF SERVICE: 03/24/2018 PROCEDURE: Transthoracic echocardiogram. FINDINGS: 1. Left ventricle shows significant regional wall motion abnormalities with anterior apical, lateral apical, and inferior apical akinetic segment. The posterior basilar and lateral basilar segments are well preserved. Overall, ejection fraction is 20%. 2. The left atrium is normal size, shape, and function. ECHOCARDIOGRAM REPORT [id number] SRIRAM JEAN 3. The aortic valve is normal. 4. The mitral valve has mild mitral regurgitation. 5. Tricuspid valve has trace tricuspid regurgitation. 6. The right ventricle is mildly dilated. 7. The right atrium is normal. CONCLUSIONS: The patient has significant regional wall motion abnormalities consistent with recent significant myocardial infarction. TRANSINT:[id number] Voice Confirmation ID: [id number] DOCUMENT ID: [id number] CATHY JONES MD at 1144 CC: [id number] DICTATION DATE: 03/24/18 1142 ANIMAL HUSBANDRY TECHNICIAN: 03/24/18 1357 ADM IN [place] [id number] [place] [address]
[2018-03-23 19:00] VITALS: BP 106/66
[2018-03-23 20:00] VITALS: BP 110/62
[2018-03-23 21:00] VITALS: BP 102/63
[2018-03-23 22:00] VITALS: BP 101/67
[~2018-03-23 22:18] MED LIST: CLARITIN-D1 TAB.SR . PO; FLUTICASONE PRO16 GM NASAL; KEFLEX250 MG PO; KLONOPIN0.5 MG PO; LEXAPRO20 MG PO; MED FOR RESTLESS LEG; MOBIC7.5 MG PO; PROTONIX40 MG PO; SINEMET 25-1001 EACH PO; VIBRAMYCIN50 MG PO; [UNRECOGNIZED DRUG - REMARK]
[2018-03-23] MEDS ORDERED: AUGMENTIN 875-11 TAB PO (22:42)
[2018-03-23] MEDS ORDERED: KEFLEX250 MG PO (22:43)
[2018-03-23] MEDS ORDERED: COREG 3.1253.125 MG PO (22:44)
[2018-03-23] MEDS ORDERED: VIBRAMYCIN50 MG PO (22:44)
[2018-03-23] MEDS ORDERED: LISINOPRIL5 MG PO (22:45)
[2018-03-23] MEDS ORDERED: PLAVIX75 MG PO (22:45)
[2018-03-23 22:59] LABS: BASOPHILS 0.1 % (0-2); EOSINOPHILS 0.6 % (0-7); HEMATOCRIT 46.2 % (36.0-48.0); HEMOGLOBIN 15.8 g/dL (12-16); IMMATURE GRANULOCYTES 0.3 % (0-5); LYMPHOCYTES 12.5 % (15-50); MCH 33.5 pg (26.0-34.0); MCHC 34.2 g/dL (31.0-37.0); MCV 98.1 fL (80.0-100.0); MONOCYTES 6.5 % (2-11); PLATELET COUNT 246 10x3/uL (130-400); RBC 4.71 10x6/uL (4.00-5.40); RDW 13.8 % (11.5-14.5); WBC 10.7 10x3/uL (4.8-10.8)
[2018-03-23 23:00] VITALS: BP 97/55
[2018-03-23 23:00] LABS: INR 0.96 (0.85-1.17); PROTIME 12.4 SECONDS (11.6-15.0)
[2018-03-23 23:35] VITALS: BP 118/84
[2018-03-23 23:38] LABS: CALC OSMOLALITY 282 mosm/kg (275-300); CALCIUM 8.7 mg/dL (8.5-10.1); CARBON DIOXIDE 24.3 mmol/L (21.0-32.0); CHLORIDE - SERUM 104 mmol/L (98-107); CREATININE - SERUM 1.2 mg/dL (0.6-1.3); GLUCOSE 131 mg/dL (74-106); POTASSIUM - SERUM 5.2 mmol/L (3.5-5.1); SODIUM 139 mmol/L (136-145); UREA NITROGEN 20 mg/dL (7-18); eGFR NON AFRICAN AMERICAN 46 mL/min (90-120)
[2018-03-23 23:41] LABS: CKMB 469.6 U/L (0.0-3.6); CREATINE KINASE 3870 UL (21-215)
[2018-03-24] VITALS (25 sets, daily range): BP systolic 91–121; BP diastolic 58–89; Ht 157.5 cm; Wt 60.8 kg
[2018-03-24] MEDS ORDERED: SOOLANTRA (01:51)
[2018-03-24] MEDS ORDERED: [UNRECOGNIZED DRUG - OTHER] (01:54)
[2018-03-24 10:56] LABS: CKMB 273.7 U/L (0.0-3.6)
[2018-03-24 11:01] LABS: CREATINE KINASE 2252 UL (21-215)
[2018-03-24 11:23] LABS: TROPONIN-I 142.439 ng/mL (0.000-0.060)
[2018-03-24 15:49] LABS: CKMB 172.8 U/L (0.0-3.6)
[2018-03-24 15:50] LABS: CREATINE KINASE 1628 UL (21-215)
[2018-03-24 15:51] LABS: TROPONIN-I 63.972 ng/mL (0.000-0.060)
[2018-03-24 21:50] LABS: CKMB 81.5 U/L (0.0-3.6)
[2018-03-24 21:52] LABS: CREATINE KINASE 1028 UL (21-215)
[2018-03-24 21:58] LABS: TROPONIN-I 34.338 ng/mL (0.000-0.060)
[2018-03-25] VITALS (15 sets, daily range): BP systolic 87–108; BP diastolic 56–75
[2018-03-25 17:40] LABS: BASOPHILS 0.2 % (0-2); EOSINOPHILS 0 % (0-7); IMMATURE GRANULOCYTES 0.5 % (0-5); LYMPHOCYTES 26.5 % (15-50); MCH 33.2 pg (26.0-34.0); MCHC 34.2 g/dL (31.0-37.0); MCV 97.1 fL (80.0-100.0); MEAN PLATELET VOLUME 9.8 fL (7.4-10.4); MONOCYTES 7.5 % (2-11); NEUTROPHILS 65.3 % (40-80); RBC 3.79 10x6/uL (4.00-5.40); RDW 13.9 % (11.5-14.5)
[2018-03-25 17:46] LABS: HEMATOCRIT 36.8 % (36.0-48.0); HEMOGLOBIN 12.6 g/dL (12-16); PLATELET COUNT 196 10x3/uL (130-400); WBC 6.7 10x3/uL (4.8-10.8)
[2018-03-25 18:00] LABS: ALBUMIN 3.3 g/dL (3.4-5.0); ANION GAP 16.5 mmol/L (8-16); BILIRUBIN - TOTAL 0.24 mg/dL (0.2-1.3); CALCIUM 8.3 mg/dL (8.5-10.1); CARBON DIOXIDE 20.7 mmol/L (21.0-32.0); CREATININE - SERUM 0.9 mg/dL (0.6-1.3); POTASSIUM - SERUM 3.2 mmol/L (3.5-5.1); PROTEIN - SERUM 6.4 g/dL (6.4-8.2)
[2018-03-26 06:10] LABS: INR 1.06 (0.85-1.17); PROTIME 13.4 SECONDS (11.6-15.0)
[2018-03-26 06:11] VITALS: BP 98/45
[2018-03-26 08:27] VITALS: BP 108/58
[2018-03-26 11:33] VITALS: BP 106/47
[2018-03-26 16:14] VITALS: BP 121/75
[2018-03-26 21:00] VITALS: BP 103/64
[2018-03-27] MEDS ORDERED: COUMADIN5 MG PO (00:31)
[2018-03-27] MEDS ORDERED: LIPITOR10 MG PO (00:32)
[2018-03-27 02:11] VITALS: BP 112/75
[2018-03-27 06:28] VITALS: BP 110/70
[2018-03-27 08:03] VITALS: BP 116/66
== END 2018-03-27 13:06 | disposition home or self-care (01) | DRG 281 ==
LOC: D.ER 22:18 → D.M2 23:14 → D.EDHOLD 23:14 → D.CVICU 23:14 → D.M2 03-25 22:24
PROVIDERS: Family Medicine; Internal Medicine Cardiovascular Disease
PROC: B2111ZZ Fluoroscopy of Multiple Coronary Arteries using Low Osmolar Contrast (ICD-10-PCS; 2018-03-24)
PROC: 4A023N7 Measurement of Cardiac Sampling and Pressure, Left Heart, Percutaneous Approach (ICD-10-PCS; 2018-03-24)
PROC: B2151ZZ Fluoroscopy of Left Heart using Low Osmolar Contrast (ICD-10-PCS; principal; 2018-03-24 08:00)
DX: I21.09 ST elevation (STEMI) myocardial infarction involving other coronary artery of anterior wall (principal); I50.20 Unspecified systolic (congestive) heart failure; I42.9 Cardiomyopathy, unspecified; R00.0 Tachycardia, unspecified; I25.2 Old myocardial infarction

== ENCOUNTER → 2018-04-13 10:30 | Outpatient (CLI) | payer MEDICARE, OTHER ==
[2018-03-24 11:01] VITALS: BMI 24.5
--- NOTE | ~2018-04-13 | EC ---
PATIENT:SRIRAM JEAN DATE OF SERVICE: 04/13/18 SEX: F MEDICAL RECORD: [id number] DATE OF : 37 LOCATION:D.[facility] AGE OF PATIENT: 82 ADMISSION DATE: 04/13/18 REFERRING PHYSICIAN: INTERPRETING PHYSICIAN: CATHY JONES MD ECHOCARDIOGRAM REPORT ECHO CHARGES 4 ECHO COMPLETE Date: 04/13 CLINICAL DIAGNOSIS: MN/HTN/CARDIOMYPATHY/CHF ECHOCARDIOGRAPHIC MEASUREMENTS (adult normal given) AC root (d.<3.7cm) 3.5 cm LV Septum d (<1.2 cm> 0.8 cm Valve Excursion 1.8 cm LV Septum (systole) 1.4 cm Left Atria (s.<4.0cm> 3.6 cm LVPW d(<1.2cm) 1.0 cm RV (d.<2.3cm) 2.6 cm LVPW (sytole) 1.6 cm LV diastole(<5.6CM) 6.6 cm MV E-F(>70mm/sec) cm LV systole 5.1 cm LVOT Diameter 1.8 cm MV exc.(>10mm) cm Est.ejection fraction (50-75%) % DOPPLER: LVIT cm/sec A 108 cm/sec E 83.0 cm/sec LA cm/sec RVSP 36.0 mmHg LVOT 89.0 cm/sec AOP1/2T m/s Asc. Ao 117 cm/sec RVOT 61.0 cm/sec RA cm/sec PA 74.0 cm/sec AV Gradient Peak 5.5 mmHg AV Mean 2.8 mmHg AV Area 2.1 cm MV Gradient Peak 6.6 mmHg MV Mean 1.7 mmHg MV Area cm COMMENTS: Rehabilitation Inspector: Scott [facility] Specialist: Alyssa Jones TAPE# PACS Pericardial Effusion N DATE OF SERVICE: 04/13/2018 PROCEDURE: Transthoracic echocardiogram. FINDINGS: 1. Left ventricle shows evidence of regional wall motion abnormalities in the anterior, anterior apical, anterior septal areas appears to have dyskinetic area in those regions where the lateral wall and posterior wall are myuxji-ti-zpupzc hyperkinetic. There is dilatation of the left ventricular cavity. The overall ejection fraction is 30% to 35%. ECHOCARDIOGRAM REPORT [id number] SRIRAM JEAN 2. The left atrium is normal size, shape, structure, and function. 3. The aortic valve is normal. 4. The mitral valve has trace mitral regurgitation. 5. Tricuspid valve has mild tricuspid regurgitation. RVSP is mildly elevated at 30 to 35 mmHg. 6. The right atrium is normal. 7. Right ventricle is normal. CONCLUSIONS: The patient has evidence of ischemic cardiomyopathy, ejection fraction 30% to 35%. TRANSINT:[id number] Voice Confirmation ID: [id number] DOCUMENT ID: [id number] CATHY JONES MD at 0749 CC: [id number] DICTATION DATE: 04/14/18 0749 QUALITY ASSURANCE: 04/14/18 1054 DEP CLI 04/13/[address] [facility] [address] [place] [address]
[~2018-04-13 10:30] MED LIST changes: +AUGMENTIN 875-11 TAB PO; +COREG 3.1253.125 MG PO; +COUMADIN5 MG PO; +LIPITOR10 MG PO; +LISINOPRIL5 MG PO; +PLAVIX75 MG PO; +SOOLANTRA; +[UNRECOGNIZED DRUG - OTHER]
== END | disposition home or self-care (01) ==
LOC: D.ECHO 10:30
DX: I21.9 Acute myocardial infarction, unspecified (principal); I10 Essential (primary) hypertension; I42.9 Cardiomyopathy, unspecified; I50.9 Heart failure, unspecified

== ENCOUNTER → 2018-05-19 12:55 | Outpatient (CLI) | payer MEDICARE, OTHER ==
[2018-03-24 11:01] VITALS: BMI 24.5
--- NOTE | ~2018-05-19 | EC ---
PATIENT:SRIRAM JEAN DATE OF SERVICE: 05/19/18 SEX: F MEDICAL RECORD: [id number] DATE OF : 37 LOCATION:D.[facility] AGE OF PATIENT: 83 ADMISSION DATE: 05/19/18 REFERRING PHYSICIAN: INTERPRETING PHYSICIAN: CATHY JONES MD ECHOCARDIOGRAM REPORT ECHO CHARGES 4 ECHO COMPLETE Date: 05/19/18 CLINICAL DIAGNOSIS: HTN, CAD, CARDIOMYOPATHY ECHOCARDIOGRAPHIC MEASUREMENTS (adult normal given) AC root (d.<3.7cm) 3.6 cm LV Septum d (<1.2 cm> 0.9 cm Valve Excursion 1.4 cm LV Septum (systole) 1.3 cm Left Atria (s.<4.0cm> 3.7 cm LVPW d(<1.2cm) 0.8 cm RV (d.<2.3cm) 2.9 cm LVPW (sytole) 1.1 cm LV diastole(<5.6CM) 5.8 cm MV E-F(>70mm/sec) cm LV systole 4.7 cm LVOT Diameter 1.8 cm MV exc.(>10mm) cm Est.ejection fraction (50-75%) % DOPPLER: LVIT cm/sec A 79 cm/sec E 64 cm/sec LA cm/sec RVSP 34.0 mmHg LVOT 67 cm/sec AOP1/2T m/s Asc. Ao 212 cm/sec RVOT 51 cm/sec RA cm/sec PA 62 cm/sec AV Gradient Peak 17.9 mmHg AV Mean 13.4 mmHg AV Area 0.6 cm MV Gradient Peak 3.8 mmHg MV Mean 2.0 mmHg MV Area cm COMMENTS: Java J2E[employer] Software Engineer: David QUIGLEY Sane Rn: Alyssa Jones TAPE# PACS Pericardial Effusion N DATE OF SERVICE: PROCEDURE: Transthoracic echocardiogram. FINDINGS: 1. Left ventricle at upper limits of normal to mildly dilated. There is regional wall motion abnormality seen in the anterior, anterior apical portion. The apical portion actually has mild dyskinesis. Overall ejection fraction is 35%. 2. The left atrium is normal. ECHOCARDIOGRAM REPORT [id number] SRIRAM JEAN 3. The aortic valve is normal. 4. The mitral valve has trace mitral regurgitation. 5. Tricuspid valve has trace tricuspid regurgitation. RVSP is 34 mmHg. 6. The right ventricle overall is normal. 7. The right atrium is normal. 8. The pulmonic valve is normal. There is no significant pericardial effusion. CONCLUSION: The patient has evidence of an ischemic cardiomyopathy, moderate to severe. TRANSINT:[id number] Voice Confirmation ID: [id number] DOCUMENT ID: [id number] CATHY JONES MD at 0744 CC: [id number] DICTATION DATE: 05/21/18925 DISPENSING OPTICIAN: 05/21/18 1058 DEP CLI 05/19/[address] [address]
== END | disposition home or self-care (01) ==
LOC: D.ECHO 12:55 → D.NM 14:00
DX: I11.0 Hypertensive heart disease with heart failure (principal); I50.9 Heart failure, unspecified; E78.5 Hyperlipidemia, unspecified; I25.10 Atherosclerotic heart disease of native coronary artery without angina pectoris; I42.9 Cardiomyopathy, unspecified

== ENCOUNTER 2019-06-14 11:03 | Inpatient (IN) | payer MEDICARE, OTHER ==
[~2019-06-14] VITALS: Ht 157.5 cm; Wt 61.2 kg
[~2019-06-14 11:03] MED LIST changes: +CLARITIN 10 MG10 MG PO; -CLARITIN-D1 TAB.SR . PO
[2019-06-14] MEDS ORDERED: K-TAB10 MEQ PO (11:21)
[2019-06-14] MEDS ORDERED: FLAGYL500 MG PO (11:22)
[2019-06-14] MEDS ORDERED: FUROSEMIDE20 MG PO (11:22)
[2019-06-14] MEDS ORDERED: ALDACTONE25 MG PO (11:23)
[2019-06-14] MEDS ORDERED: NYSTATIN (11:24)
[2019-06-14] MEDS ORDERED: ZOCOR20 MG PO (11:25)
[2019-06-14] MEDS ORDERED: SODIUM BICARBO650 MG PO (11:26)
[2019-06-14] MEDS ORDERED: REQUIP0.25 MG PO (11:27)
[2019-06-14 12:01] LABS: BASOPHILS 0.1 % (0-2); EOSINOPHILS 0 % (0-7); HEMATOCRIT 41.8 % (36.0-48.0); HEMOGLOBIN 13.2 g/dL (12-16); IMMATURE GRANULOCYTES 0.4 % (0-5); LYMPHOCYTES 9.3 % (15-50); MCH 31.7 pg (26.0-34.0); MCHC 31.6 g/dL (31.0-37.0); MCV 100.5 fL (80.0-100.0); MEAN PLATELET VOLUME 9.6 fL (7.4-10.4); MONOCYTES 8.4 % (2-11); NEUTROPHILS 81.8 % (40-80); PLATELET COUNT 185 10x3/uL (130-400); RBC 4.16 10x6/uL (4.00-5.40); RDW 15.9 % (11.5-14.5); WBC 6.7 10x3/uL (4.8-10.8)
[2019-06-14 12:10] LABS: APTT 31.9 SECONDS (22.8-39.4); CALC OSMOLALITY 268 mosm/kg (275-300); CALCIUM 8.7 mg/dL (8.5-10.1); CARBON DIOXIDE 26.5 mmol/L (21.0-32.0); CHLORIDE - SERUM 96 mmol/L (98-107); CREATININE - SERUM 1.5 mg/dL (0.6-1.3); GLUCOSE 104 mg/dL (74-106); POTASSIUM - SERUM 4.6 mmol/L (3.5-5.1); SODIUM 130 mmol/L (136-145); UREA NITROGEN 35 mg/dL (7-18); eGFR NON AFRICAN AMERICAN 35 mL/min (90-120)
[2019-06-14 12:13] LABS: INR 1.1 (0.85-1.17); PROTIME 13.7 SECONDS (11.6-15.0)
[2019-06-14 12:27] LABS: ALBUMIN 3.6 g/dL (3.4-5.0); ALKALINE PHOSPHATASE 114 U/L (46-116); ALT (SGPT) 12 U/L (10-68); BILIRUBIN - TOTAL 0.77 mg/dL (0.2-1.3); CKMB 2.6 U/L (0.0-3.6); CREATINE KINASE 78 UL (21-215); PRO BNP 11591 pg/mL (0-450); PROTEIN - SERUM 6.2 g/dL (6.4-8.2)
[2019-06-14 12:29] LABS: TROPONIN-I < 0.017 ng/mL (0.000-0.060)
--- NOTE | 2019-06-14 15:05 | MORECARE ---
CASE MANAGEMENT DISCHARGE SUMMARY PATIENT: SRIRAM JEAN [facility] UNIT: [id number] ADM DATE: 06/14/19 AGE: 84 : 36 SEX: F ROOM/BED: D.7295 AUTHOR: MELANIE GRIFFIN PHYSICIAN: REFERRING PHYSICIAN: ALEX JACOBS MD DATE OF SERVICE: 06/14/19 Discharge Plan Patient Name: SRIRAM JEAN Facility: [facility]:[place] : 1935 Planned Disposition: Inpatient Rehab Anticipated Discharge Date: 06/16/19 Discharge Date: Expected LOS: 2 Initial Reviewer: [email or web address] Initial Review Date: 06/14/2019 Generated: 06/14/19 4:04 pm DCPIA - Discharge Planning Initial Assessment Updated by [email or web address]: Ashlee Foreman on 06/14/19 3:04 pm * Is the patient Alert and Oriented? Yes * How many steps to enter\exit or inside your home? None * PCP Dr. Elliot Ag * Pharmacy [facility] in [place] * Preadmission Environment Acute Inpatient Rehab * Facility Name [facility] * ADLs Total Dependent * Equipment Oxygen Rolling Walker * Other Equipment BP Cuff -wrist Wears O2 at hs and prn - has been wearing / while in the hospital. * List name and contact numbers for known caregivers / representatives who currently or will assist patient after discharge: Toña Lopez - daughter - [phone] * Verbal permission to speak to the caregivers and representatives has been obtained from the patient. Yes * Community resources currently utilized Home Health * Please name any agencies selected above. Cristóbal FLOREZ - Kimberli - ANN MARIE signed in ER for resumption if she goes home. * Additional services required to return to the preadmission environment? No * Can the patient safely return to the preadmission environment? Yes * Has this patient been hospitalized within the prior 30 days at any hospital? Yes Patient Name: SRIRAM JEAN Page 24107 at 1505 All edits/amendments must be made on the electronic document DICTATION DATE: 06/14/19 150 SHELLFISH CHECKER: MADINA 06/14/19 1507 RPT#: [id number] IA DATE: STATUS: ADM IN [facility] [address] [place] [address] END OF REPORT
--- NOTE | 2019-06-14 15:15 | MORECARE ---
CASE MANAGEMENT DISCHARGE SUMMARY PATIENT: SRIRAM JEAN [facility] UNIT: [id number] ADM DATE: 06/14/19 AGE: 84 : 36 SEX: F ROOM/BED: D.5156 AUTHOR: MELANIE GRIFFIN PHYSICIAN: REFERRING PHYSICIAN: ALEX JACOBS MD DATE OF SERVICE: 06/14/19 Discharge Plan Patient Name: SRIRAM JEAN Facility: [facility]:[place] : 1935 Planned Disposition: Inpatient Rehab Anticipated Discharge Date: 06/16/19 Discharge Date: Expected LOS: 2 Initial Reviewer: [email or web address] Initial Review Date: 06/14/2019 Generated: 06/14/19 4:15 pm DCP- Discharge Planning Updated by [email or web address]: Ashlee Foreman on 06/14/19 2:[address] DC PLAN: Return to Inpatient rehab or home with HH. ANTICIPATED DC NEEDS: Rehab vs Resumption of HH. CM met with patient and her daughter Toña to complete initial dc planning assessment. CM educated patient on the CM role and verbal consent given by patient to complete assessment. Toña reports the patient was discharged from acute care yesterday and placed in [facility]. She reports she has gained 22 lbs since she was in the [facility] and her legs are bilaterally edematous. She stated she requested [facility] [facility] dc her this morning so she could bring her to [facility]. CM verified patient's address, phone number, and emergency contact phone numbers. Patient lives at home and her daughter has been living with her since April because she has been in poor health and unable to care for herself. Patient currently has [facility] out of [place] and if she returns home she wishes to resume at discharge. ANN MARIE form signed by patient for resumption of [facility]. Signed form placed in chart and signed form given to patient's daughter. At discharge patient's daughter reports she may go back to Inpatient rehab or home with resumption of HH. She stated she would have to see how she does. She denied further known discharge needs at this time. . Transportation provider at discharge will be daughter if she is able or ambulance . CM will continue to follow and will assist as needed with dc plans/needs. Ashlee Foreman RN, [facility] DCPIA - Discharge Planning Initial Assessment Updated by [email or web address]: Ashlee Foreman on 06/14/19 3:04 pm * Is the patient Alert and Oriented? Yes * How many steps to enter\exit or inside your home? None * PCP Dr. Elliot Ag * [facility] in [place] * Preadmission Environment Acute Inpatient Rehab * Facility Name [facility] * ADLs Total Dependent * Equipment Oxygen Rolling Walker * Other Equipment BP Cuff -wrist Wears O2 at hs and prn - has been wearing 24/7 while in the hospital. * List name and contact numbers for known caregivers / representatives who currently or will assist patient after discharge: Toña Lopez - daughter - [phone] * Verbal permission to speak to the caregivers and representatives has been obtained from the patient. Yes * Community resources currently utilized Home Health * Please name any agencies selected above. Cristóbal JESUS signed in ER for resumption if she goes home. * Additional services required to return to the preadmission environment? No * Can the patient safely return to the preadmission environment? Yes * Has this patient been hospitalized within the prior 30 days at any hospital? Yes Last DP export: 06/14/19 2:05 Patient Name: SRIRAM JEAN Page [id number] at 1515 All edits/amendments must be made on the electronic document DICTATION DATE: 06/14/191514 MACHINE HEEL SPRAYER: MADINA 06/14/191514 RPT#: [id number] UT DATE: STATUS: ADM IN [facility] [address] [place] [address] END OF REPORT
--- NOTE | 2019-06-14 15:20 | NUR ---
pt to room from er on cart, assist to transfer to bed due to weakness. family at bedside. oxygen per n/c at 4 liters 93%. BLE with +2 edema noted, palpable pulses, denies numbness or tingling. pain 3/10 to knees at present. infusing on bumex and dobutamine drip on arrival. scd's refused at present.
[2019-06-14 20:00] VITALS: BP 93/58
[2019-06-15] VITALS: BP 111/66
[2019-06-15 04:00] VITALS: BP 102/63
--- NOTE | 2019-06-15 04:38 | NUR ---
PATIENT REFUSED AM LABS. WENT TO ROOM TO EDUCATE THE PATIENT ON THE IMPORTANCE ON THE AM LAB. PATIENT STATED SHE UNDERSTOOD, BUT TO ME TO GET HER DAUGHTERS BLLOD INSTEAD AND TOLD ME TO FILM HISTORIAN THE LIGHT WHEN I LEFT.
--- NOTE | 2019-06-15 06:21 | NUR ---
SECOND ATTEMPT ON AM LAB DRAW PATIENT REFUSED. PATIENT ASKED IF I WAS SICK.
--- NOTE | 2019-06-15 07:00 | NUR ---
RECIEVED REPORT. ALERT AND ORIENTED X4. DAUGHTER AT BEDSIDE. BUMEX AND DOBUTAMINE DRIP INFUSING ORDERED. SINUS RYTHM 74 ON TELEMETRY. REFUSE LAB DRAW X2. DENIES ANY NEEDS AT THIS TIME. CONTINUE PLAN OF CARE AND SAFETY PRECAUTIONS.
[2019-06-15 08:09] LABS: BASOPHILS 0.3 % (0-2); EOSINOPHILS 0 % (0-7); HEMOGLOBIN 12.3 g/dL (12-16); IMMATURE GRANULOCYTES 0.3 % (0-5); MCH 31.5 pg (26.0-34.0); MCHC 32.4 g/dL (31.0-37.0); MEAN PLATELET VOLUME 9.7 fL (7.4-10.4); MONOCYTES 9.9 % (2-11); NEUTROPHILS 77.5 % (40-80); PLATELET COUNT 168 10x3/uL (130-400); RDW 15.6 % (11.5-14.5); WBC 5.7 10x3/uL (4.8-10.8)
[2019-06-15 08:12] LABS: MCV 97.4 fL (80.0-100.0)
[2019-06-15 08:26] LABS: ALBUMIN 3.1 g/dL (3.4-5.0); BILIRUBIN - TOTAL 0.8 mg/dL (0.2-1.3); CALCIUM 8.7 mg/dL (8.5-10.1); CARBON DIOXIDE 28.2 mmol/L (21.0-32.0); CREATININE - SERUM 1.2 mg/dL (0.6-1.3); PROTEIN - SERUM 5.1 g/dL (6.4-8.2)
[2019-06-15 08:29] LABS: ANION GAP 8.9 mmol/L (8-16); POTASSIUM - SERUM 3.1 mmol/L (3.5-5.1)
[2019-06-15] MEDS ORDERED: COREG6.25 MG PO (09:23)
[2019-06-15] MEDS ORDERED: LISINOPRIL2.5 MG PO (09:25)
[2019-06-15] MEDS ORDERED: FLAGYL500 MG PO (09:26)
[2019-06-15] MEDS ORDERED: KLONOPIN0.5 MG PO (09:27)
[2019-06-15] MEDS ORDERED: SINEMET 25-1001 EAC1 PO (09:31)
[2019-06-15] MEDS ORDERED: NYSTATIN PO (09:36)
[2019-06-15 11:03] VITALS: BP 143/57
--- NOTE | 2019-06-15 11:41 | EC ---
PATIENT:SRIRAM JEAN DATE OF SERVICE: 06/14/19 SEX: F MEDICAL RECORD: [id number] DATE OF : [birth year] LOCATION:D.M2 D.212 AGE OF PATIENT: 84 ADMISSION DATE: 06/14/19 REFERRING PHYSICIAN: INTERPRETING PHYSICIAN: ALEX HAJI MD ECHOCARDIOGRAM REPORT ECHO CHARGES 4 ECHO COMPLETE Date: 06/14/19 CLINICAL DIAGNOSIS: CHF ECHOCARDIOGRAPHIC MEASUREMENTS (adult normal given) AC root (d.<3.7cm) 3.2 cm LV Septum d (<1.2 cm> 0.80 cm Valve Excursion 1.6 cm LV Septum (systole) 1.0 cm Left Atria (s.<4.0cm> 4.0 cm LVPW d(<1.2cm) 1.0 cm RV (d.<2.3cm) 4.9 cm LVPW (sytole) 1.3 cm LV diastole(<5.6CM) 6.1 cm MV E-F(>70mm/sec) cm LV systole 5.0 cm LVOT Diameter 2.0 cm MV exc.(>10mm) 0.90 cm Est.ejection fraction (50-75%) % DOPPLER: LVIT cm/sec A 36.0 cm/sec E 82.0 cm/sec LA cm/sec RVSP 48 mmHg LVOT 67 cm/sec AOP1/2T m/s Asc. Ao 182 cm/sec RVOT 48 cm/sec RA cm/sec PA 65 cm/sec AV Gradient Peak 13.23mmHg AV Mean 48 mmHg AV Area 1.2 cm MV Gradient Peak 5.85 mmHg MV Mean 2.04 mmHg MV Area cm COMMENTS: Client Success Director: Quincy VILLARREAL Overnight Babysitter: 1 Dr. Haji TAPE# PACS Pericardial Effusion N DATE OF SERVICE: PROCEDURE: Echocardiogram. FINDINGS: 1. Left ventricular chamber size is dilated. Left ventricular systolic function is markedly reduced, overall ejection fraction 25% to 30%. 2. Left atrium is enlarged at 4.0 cm. Right atrium and right ventricular chamber sizes are as well mildly dilated. 3. Valvular structures: Aortic valve demonstrates mild calcific aortic ECHOCARDIOGRAM REPORT [id number] SRIRAM JEAN stenosis, valve area calculates to 1.2 cm-squared. There is a gradient of 13 mm across the valve. The remaining valvular structures have normal structure and motion. 4. Doppler interrogation elsewise reveals [id number] mitral regurgitation, moderate tricuspid regurgitation, no other valvular insufficiency or stenosis. Pulmonary systolic pressure is estimated 48 mmHg. 5. No evidence of pericardial effusion or left ventricular thrombus. TRANSINT:[id number] Voice Confirmation ID: [id number] DOCUMENT ID: [id number] ALEX HAJI MD at 1141 CC: [id number] DICTATION DATE: 06/15/19907 INSTRUCTIONAL INTERVENTIONIST: 06/15/19 1032 ADM IN [facility] [address] [place] [address]
--- NOTE | 2019-06-15 11:41 | HP ---
PATIENT: SRIRAM TYLER [facility] MEDICAL RECORD: [id number] ACCOUNT: [id number] LOCATION:[address] : [birth year] ADMISSION DATE: 06/14/19 PCP: EZIO COSTELLO HISTORY AND PHYSICAL EXAMINATION DATE OF SERVICE: 06/14/2019. ADMITTING DIAGNOSES: 1. Congestive heart failure, chronic systolic dysfunction. 2. Shortness of breath, dyspnea on exertion. 3. Lower extremity edema. 4. Coronary artery disease. 5. Previous PTCA stent. 6. Hypertension. HISTORY OF PRESENT ILLNESS: Mrs. Tyler presents with fluid overload state with shortness of breath and lower extremity edema. She has a history of congestive heart failure. Last evaluation we have is an ejection fraction in the 35% range. She has been with multiple admissions to [facility] with congestive heart failure, appears that she has had renal insufficiency. She was in rehab there and having inability to withdraw her fluid and she remains in a fluid overload state, hence the family brought her here. She is not having any anginal chest discomfort. Her EKG is with no acute ST-T abnormalities and maintaining sinus rhythm. She does have significant shortness of breath and painful lower extremity swelling. PHYSICAL EXAMINATION: CONSTITUTIONAL/GENERAL APPEARANCE: Well nourished, well developed, appears stated age. EYES: Lids and conjunctivae noninjected. No discharge. No pallor. ENT: Lips within normal limit. No cyanosis. No pallor. NECK: Carotid arteries, bilateral normal upstroke. No bruits. No thrills. No jugular venous pressure or distention. CERVICAL LYMPH NODES: Nontender. Nonenlarged. THYROID: Not enlarged. No nodules. CARDIOVASCULAR: Precordial exam, nondisplaced. No heaves or pericardial thrills. Rate and rhythm, regular. Heart sounds, normal S1, normal S2. No S3, no gallop, no rub. Systolic murmur, not heard. Diastolic murmur, not heard. RESPIRATORY: There are bibasilar crackles. ABDOMEN: Soft, nondistended, nontender. No abdominal pain, no vomiting and normal appetite. MUSCULOSKELETAL: No joint tenderness, normal gait, normal tone. SKIN: Warm and dry. LOWER EXTREMITY: +3-4 edema. OVERALL IMPRESSION: Congestive heart failure, chronic systolic dysfunction. At this time, we will institute dobutamine therapy as well as a Bumex IV drip with electrolyte replacement for the fluid overload state. Hopefully, this will result in improvement in her shortness of breath and improvement in her lower extremity edema, can also change her ARJUN inhibitor to Entresto for continued treatment of the heart failure symptomatology. TRANSINT:[id number] Voice Confirmation ID: [id number] DOCUMENT ID: [id number] HISTORY AND PHYSICAL [id number] SRIRAM TYLER JEFFREY MD at 1141 CC: [id number] DICTATION DATE: 06/14/19 1213 SEPHORA OPERATIONS CONSULTANT: 06/14/19 1223 ADM IN [place] [id number] [place] [address]
[2019-06-15 12:00] VITALS: BP 99/60
[2019-06-15 14:04] VITALS: Ht 157.5 cm; Wt 61.2 kg
[2019-06-15 16:00] VITALS: BP 94/50
--- NOTE | 2019-06-15 17:09 | NUR ---
ALERT AND ORIENTED X4. RESTING IN BED. DAUGHTER AT BEDSIDE. SINUS RYTHM 85 ON TELEMETRY. DOBUTAMINE AND BUMEX DRIP CONTINUED ORDERED. DENIES ANY NEEDS. CONTINUE PLAN OF CARE AND SAFETY PRECAUTIONS.
[2019-06-15 20:00] VITALS: BP 99/62
--- NOTE | 2019-06-15 22:22 | NUR ---
EVENING ROUNDS COMPLETED. VSS, WITH SBP IN 90'S. AAOX3, NO S/S OF DISTRESS. PT ON STRICT I&O. BUMEX 5ML/HR, DOBUTAMIN @ 12MLS/HR. DAUGHTER AT BEDSIDE. PT PUT OUT 1000CC'S DURING ASSESSMENT. SINUS TACH ON MONITOR. PT DENIES ANY FURTHER NEEDS AT THIS TIME. WILL CPOC. CL WITHIN REACH, BED IN LOW, SR UP X2.
[2019-06-16] VITALS: BP 98/50
[2019-06-16 04:00] VITALS: BP 101/62
--- NOTE | 2019-06-16 08:00 | NUR ---
PT WEIGHT THIS AM IS 135 BY STANDING SCALE. PER WEIGHT CHANGED DOBUTAMINE DRIP TO 9.2ML/HR.
[2019-06-16 09:00] VITALS: BP 98/57
--- NOTE | 2019-06-16 10:22 | NUR ---
I have reviewed this patient and I concur with the Shift Assessment completed by the Licensed Practical Nurse today this shift.
--- NOTE | 2019-06-16 12:46 | NUR ---
DC DOBUTAMINE AND BUMEX DRIP ORDERED. LEFT FA 20G IV FLUSHED WITH 10ML NS AND SL IV.
[2019-06-16 13:01] VITALS: BP 93/59
[2019-06-16 20:00] VITALS: BP 103/66
[2019-06-17] VITALS: BP 99/65
[2019-06-17 04:00] VITALS: BP 103/63
--- NOTE | 2019-06-17 08:00 | NUR ---
ASSESSMENT DONE. DENIES NEEDS
--- NOTE | 2019-06-17 08:54 | NUR ---
UPON ADMIT, PATIENT REPORTS TO HAVING FLU SHOT THIS YEAR.
[2019-06-17] MEDS ORDERED: BUMEX2 MG PO (09:03)
[2019-06-17 09:57] VITALS: BP 88/54
--- NOTE | 2019-06-17 09:58 | NUR ---
I have reviewed this patient and I concur with the Shift Assessment completed by the Licensed Practical Nurse today this shift.
--- NOTE | 2019-06-17 10:06 | MORECARE ---
CASE MANAGEMENT DISCHARGE SUMMARY PATIENT: SRIRAM JEAN [facility] UNIT: [id number] ADM DATE: 06/14/19 AGE: 84 : 36 SEX: F ROOM/BED: D.8454 AUTHOR: MELANIE GRIFFIN PHYSICIAN: REFERRING PHYSICIAN: ALEX JACOBS MD DATE OF SERVICE: 06/17/19 Discharge Plan Patient Name: SRIRAM JEAN Facility: [facility]:[place] : 1935 Planned Disposition: Outpatient clinics\services (Programs) Anticipated Discharge Date: 06/17/19 Discharge Date: Expected LOS: 3 Initial Reviewer: [email or web address] Initial Review Date: 06/14/2019 Generated: 06/17/19 11:05 am DCP- Discharge Planning Updated by [email or web address]: Ashlee Foreman on 06/14/19 2:[address] DC PLAN: Return to Inpatient rehab or home with HH. ANTICIPATED DC NEEDS: Rehab vs Resumption of HH. CM met with patient and her daughter Toña to complete initial dc planning assessment. CM educated patient on the CM role and verbal consent given by patient to complete assessment. Toña reports the patient was discharged from acute care yesterday and placed in [facility]. She reports she has gained 22 lbs since she was in the [facility] and her legs are bilaterally edematous. She stated she requested [place] [facility] dc her this morning so she could bring her to [facility]. CM verified patient's address, phone number, and emergency contact phone numbers. Patient lives at home and her daughter has been living with her since April because she has been in poor health and unable to care for herself. Patient currently has [facility] out of [place] and if she returns home she wishes to resume at discharge. ANN MARIE form signed by patient for resumption of [facility]. Signed form placed in chart and signed form given to patient's daughter. At discharge patient's daughter reports she may go back to Inpatient rehab or home with resumption of HH. She stated she would have to see how she does. She denied further known discharge needs at this time. . Transportation provider at discharge will be daughter if she is able or ambulance . CM will continue to follow and will assist as needed with dc plans/needs. Ashlee Foreman RN, [facility] DCPIA - Discharge Planning Initial Assessment Updated by [email or web address]: Ashlee Foreman on 06/14/19 3:04 pm * Is the patient Alert and Oriented? Yes * How many steps to enter\exit or inside your home? None * PCP Dr. Elliot Ag * [facility] [place] * Preadmission Environment Acute Inpatient Rehab * Facility Name [facility] * ADLs Total Dependent * Equipment Oxygen Rolling Walker * Other Equipment BP Cuff -wrist Wears O2 at hs and prn - has been wearing 24/ while in the hospital. * List name and contact numbers for known caregivers / representatives who currently or will assist patient after discharge: Toña Torres - daughter - [phone] * Verbal permission to speak to the caregivers and representatives has been obtained from the patient. Yes * Community resources currently utilized Home Health * Please name any agencies selected above. Cristóbal JESUS signed in ER for resumption if she goes home. * Additional services required to return to the preadmission environment? No * Can the patient safely return to the preadmission environment? Yes * Has this patient been hospitalized within the prior 30 days at any hospital? Yes External Providers External Provider: OTHER-OTHER Next Contact Date: 06/17/2019 Service Request Date: Service Type: Resolution: Reviewer: Comments: Coverage Notice Reviewer: [email or web address] - Foster Wiggins Notice Issued Date-Time: 06/17/2019 8:55 Notice Type: IM Discharge Notice Notice Delivered To: Family Member Relationship to Patient: Daughter Stringing Machine Tender Name: TOÑA TORRES Delivery Method: HAND - Hand Delivered Tammy Days: Prior Verbal Notification: Recipient Understood Notice: Yes Recipient Signature: Yes Med Rec Note Co-signed by Attending: Coverage Notice Comment: Last DP export: 06/14/19 2:15 Patient Name: SRIRAM JEAN Page 34539 at 1006 All edits/amendments must be made on the electronic document DICTATION DATE: 06/17/19 1005 SUSTAINABLE DESIGN COORDINATOR: MADINA 06/17/19 100 RPT#: [id number] DC DATE: STATUS: ADM IN [facility] [address] [place] [address] END OF REPORT
--- NOTE | 2019-06-17 10:14 | MORECARE ---
CASE MANAGEMENT DISCHARGE SUMMARY PATIENT: SRIRAM JEAN [facility] UNIT: [id number] ADM DATE: 06/14/19 AGE: 84 : 36 SEX: F ROOM/BED: D.7231 AUTHOR: GABY,DOC PHYSICIAN: REFERRING PHYSICIAN: ALEX JACOBS MD DATE OF SERVICE: 06/17/19 Discharge Plan Patient Name: SRIRAM JEAN Facility: [facility]:[place] : 1935 Planned Disposition: Outpatient clinics\services (Programs) Anticipated Discharge Date: 06/17/19 Discharge Date: Expected LOS: 3 Initial Reviewer: [email or web address] Initial Review Date: 06/14/2019 Generated: 06/17/19 11:13 am Comments DCP- Discharge Planning Updated by [email or web address]: Foster Wiggins on 06/17/19 9:[address] Patient Name: SRIRAM JEAN Encounter No: [id number] : 1935 Primary Insurance: MEDICARE A & B Anticipated DC Date: 06-17-2019 Planned Disposition: Outpatient clinics\services (Programs) External Planned Provider: [facility] DCP follow-up note: CM RECEIVED ORDER FOR OUTPATIENT THERAPY SERVICES, SPOKE TO PT AND DAUGHTER IN ROOM. PT UNDERSTANDS SHE CANNOT HAVE HOME HEALTH AND OUTPATIENT THERAPY, PT AND DAUGHTER FEEL PT WILL RECEIVE MORE THERAPY OUTPATIENT AND DAUGHTER REPORTS NOT NEEDING HOME HEALTH AT THIS TIME AND SHE, DAUGHTER, IS AT HOME WITH PT TO ASSIST IN CARE AND TRANSPORTATION. THEY REQUESTED OUTPATIENT THERAPY AT [facility] [place], PROVIDED CM WITH CONTACT INFORMATION FOR REHAB CENTER. IMPORTANT MESSAGE FROM MEDICARE PROVIDED AND EXPLAINED. PT AND DAUGHTER DENIED FURTHER NEEDS. CM NOTIFIED BEDSIDE NURSE. CM CALLED [facility], , SPOKE TO AD AND PROVIDED REFERRAL FOR REHAB, FAXED REFERRAL TO [facility] AT [phone], PROVIDED DAUGHTERS NAME AND CONTACT NUMBER TO CALL AND SCHEDULE APPOINTMENT: TOÑA TORRES, . RESEARCH AND DEVELOPMENT ENGINEER NURSE NOTIFIED. Foster Wiggins, CASE MANAGEMENT DCP- Discharge Planning Updated by [email or web address]: Ashlee Foreman on 06/14/19 2:[address] DC PLAN: Return to Inpatient rehab or home with HH. ANTICIPATED DC NEEDS: Rehab vs Resumption of HH. CM met with patient and her daughter Toña to complete initial dc planning assessment. CM educated patient on the CM role and verbal consent given by patient to complete assessment. Toña reports the patient was discharged from acute care yesterday and placed in [facility] [facility]. She reports she has gained 22 lbs since she was in the [facility] and her legs are bilaterally edematous. She stated she requested [place] [facility] dc her this morning so she could bring her to [facility]. CM verified patient's address, phone number, and emergency contact phone numbers. Patient lives at home and her daughter has been living with her since April because she has been in poor health and unable to care for herself. Patient currently has [facility] out of [place] and if she returns home she wishes to resume at discharge. ANN MARIE form signed by patient for resumption of [facility]. Signed form placed in chart and signed form given to patient's daughter. At discharge patient's daughter reports she may go back to Inpatient rehab or home with resumption of HH. She stated she would have to see how she does. She denied further known discharge needs at this time. . Transportation provider at discharge will be daughter if she is able or ambulance . CM will continue to follow and will assist as needed with dc plans/needs. Ashlee Foreman RN, [facility] DCPIA - Discharge Planning Initial Assessment Updated by [email or web address]: Ashlee Foreman on 06/14/19 3:04 pm * Is the patient Alert and Oriented? Yes * How many steps to enter\exit or inside your home? None * PCP Dr. Elliot [facility] - [place] * [facility] [place] * Preadmission Environment Acute Inpatient Rehab * Facility Name [facility] * ADLs Total Dependent * Equipment Oxygen Rolling Walker * Other Equipment BP Cuff -wrist Wears O2 at hs and prn - has been wearing 10/03 while in the hospital. * List name and contact numbers for known caregivers / representatives who currently or will assist patient after discharge: Toña Torres - daughter - [phone] * Verbal permission to speak to the caregivers and representatives has been obtained from the patient. Yes * Community resources currently utilized Home Health * Please name any agencies selected above. [facility] - ANN MARIE signed in ER for resumption if she goes home. * Additional services required to return to the preadmission environment? No * Can the patient safely return to the preadmission environment? Yes * Has this patient been hospitalized within the prior 30 days at any hospital? Yes Coverage Notice Reviewer: [email or web address] Fabi Wiggins Notice Issued Date-Time: 06/17/2019 8:55 Notice Type: IM Discharge Notice Notice Delivered To: Family Member Relationship to Patient: Daughter Litigation Examiner Name: TOÑA TORRES Delivery Method: HAND - Hand Delivered Tammy Days: Prior Verbal Notification: Recipient Understood Notice: Yes Recipient Signature: Yes Med Rec Note Co-signed by Attending: Coverage Notice Comment: Last DP export: 06/17/19 9:06 Patient Name: SRIRAM JEAN Page 69327 at 1014 All edits/amendments must be made on the electronic document DICTATION DATE: 06/17/19 1013 SPECIFICATION WRITER: MADINA 06/17/19 1013 RPT#: [id number] DC DATE: STATUS: ADM IN [facility] [address] [place] [address] END OF REPORT
--- NOTE | 2019-06-17 12:02 | NUR ---
DC GIVEN TO PT AND DAUGHTER
[2019-06-17 12:37] VITALS: BP 93/58
--- NOTE | 2019-06-17 12:50 | NUR ---
DC HOME PER PERSONAL CAR
--- NOTE | 2019-06-23 14:07 | DS ---
PATIENT:SRIRAM TYLER :37 MEDICAL RECORD: [id number] DISCHARGE SUMMARY ADMISSION DATE: 06/14/19 DISCHARGE DATE: 06/17/19 DISCHARGE DIAGNOSES: 1. Congestive heart failure, chronic systolic dysfunction. 2. Edema. 3. Shortness of breath, dyspnea on exertion. 4. Coronary artery disease. 5. Previous PTCA and stent. 6. Hypertension. HOSPITAL COURSE: Ms. Tyler presents with fluid overload, congestive heart failure, lower extremity edema state. She has an ejection fraction in the 35% range. She was placed on dobutamine as well as Bumex drip, had an excellent diuresis. Discharged home with changing her previous Lasix to Bumex 2 mg every day. She will follow up with [facility] in 1 month. TRANSINT:[id number] Voice Confirmation ID: [id number] DOCUMENT ID: [id number] ALEX JACOBS MD at 1407 CC: [id number] DICTATION DATE: 06/17/19 1154 LEADITE HEATER: 06/18/19 0132 DIS IN 06/17/19 [facility] [address] [place] [address]
== END 2019-06-17 12:50 | disposition home or self-care (01) | DRG 292 ==
LOC: D.ER 11:03 → D.M2 12:11 → D.SDCHOLD 06-17 11:30 → D.M2 06-17 11:30
PROVIDERS: Family Medicine; ADMIT Internal Medicine Interventional Cardiology; ATTEND Internal Medicine Interventional Cardiology
DX: I11.0 Hypertensive heart disease with heart failure (principal); E87.1 Hypo-osmolality and hyponatremia; I50.23 Acute on chronic systolic (congestive) heart failure; I25.10 Atherosclerotic heart disease of native coronary artery without angina pectoris

== ENCOUNTER 2019-06-25 04:14 | Inpatient (IN) | payer MEDICARE, OTHER ==
[~2019-06-25] VITALS: Ht 157.5 cm; Wt 57.5 kg
[~2019-06-25 04:14] MED LIST changes: +ALDACTONE25 MG PO; +BUMEX2 MG PO; +COREG6.25 MG PO; +FLAGYL500 MG PO; +FUROSEMIDE20 MG PO; +K-TAB10 MEQ PO; +LISINOPRIL2.5 MG PO; +NYSTATIN; +NYSTATIN PO; +REQUIP0.25 MG PO; +SINEMET 25-1001 EAC1 PO; +SODIUM BICARBO650 MG PO; +ZOCOR20 MG PO
--- NOTE | 2019-06-25 05:20 | NUR ---
UNABLE TO DO MED REC. PATIENT STATES SHE DOES NOT KNOW THE MEDICATIONS THAT SHE TAKES. THE MEDICATIONS THAT ARE ON THE PAPERWORK FROM [facility] PATIENT DOES NOT KNOW IF THOSE ARE THE CURRENT MEDICATIONS. PATIENT STATES DAUGTHER KNOW HER MEDICATIONS AND IS ON HER WAY HERE.
[2019-06-25 05:26] VITALS: BP 101/75; BMI 24.8
--- NOTE | 2019-06-25 07:24 | NUR ---
REPORT RECEIVED. WILL CONTINUE WITH POC. PT CURRENTLY LYING ASLEEP WITH EYES CLOSED ON RIGHT SIDE. CALL LIGHT W/I REACH. RR EVEN AND UNLABORED ON 3L 02. R.WRIST PIV IS SALINE LOCKED. PT DENIES ANY NEEDS AT THIS TIME. NO S/S OF DISTRESS NOTED. WILL CTM.
[2019-06-25 09:35] VITALS: BP 98/65
[2019-06-25 11:47] LABS: BASOPHILS 0.2 % (0-2); EOSINOPHILS 0.1 % (0-7); HEMATOCRIT 43.1 % (36.0-48.0); HEMOGLOBIN 13.6 g/dL (12-16); IMMATURE GRANULOCYTES 0.6 % (0-5); LYMPHOCYTES 14.8 % (15-50); MCH 31.5 pg (26.0-34.0); MCHC 31.6 g/dL (31.0-37.0); MCV 99.8 fL (80.0-100.0); MEAN PLATELET VOLUME 10.6 fL (7.4-10.4); MONOCYTES 7.7 % (2-11); NEUTROPHILS 76.6 % (40-80); PLATELET COUNT 200 10x3/uL (130-400); RBC 4.32 10x6/uL (4.00-5.40); RDW 15.8 % (11.5-14.5); WBC 9.9 10x3/uL (4.8-10.8)
[2019-06-25 11:49] LABS: APTT 31.2 SECONDS (22.8-39.4); INR 1.27 (0.85-1.17); PROTIME 15.4 SECONDS (11.6-15.0)
[2019-06-25 12:00] LABS: ALBUMIN 3.7 g/dL (3.4-5.0); ANION GAP 11.4 mmol/L (8-16); BILIRUBIN - TOTAL 1.68 mg/dL (0.2-1.3); CALCIUM 8.4 mg/dL (8.5-10.1); CARBON DIOXIDE 30.8 mmol/L (21.0-32.0); CREATININE - SERUM 1.4 mg/dL (0.6-1.3); POTASSIUM - SERUM 4.2 mmol/L (3.5-5.1); PROTEIN - SERUM 6.3 g/dL (6.4-8.2)
[2019-06-25 12:59] VITALS: BP 111/82
[2019-06-25 13:36] VITALS: Ht 157.5 cm; Wt 57.5 kg
--- NOTE | 2019-06-25 13:51 | CN ---
PATIENT NAME:SRIRAM JEAN [facility] MEDICAL RECORD: [id number] : 37 LOCATION:D.[place]ory D.2128 ADMIT DATE: 06/25/19 ACCOUNT: [id number] CONSULTING PHYSICIAN: JENNY DRUMMOND MD REFERRING PHYSICIAN: ISABELLA CALABRESE MD DATE OF CONSULTATION: 06/25/2019 HISTORY OF PRESENT ILLNESS: An 84-year-old female with a history of coronary artery disease, status post intervention via Dr. Ash. She has a history of chronic systolic dysfunction. Most recent EF 25%, had been transferred from [place] with mild volume overload, weakness. She has actually been trying to rehab from her most recent admit less than a week ago. Feels well and in fact at this point is status post 1 dose of Lasix. We are asked to see her concerning her cardiovascular status. PAST MEDICAL HISTORY: Includes: 1. History of coronary artery disease. 2. Hypertension. 3. Cardiomyopathy with chronic and acute systolic dysfunction. 4. Dyslipidemia. MEDICATIONS: Include potassium 10 mEq p.o. every day, Bumex 2 mg p.o. daily, Requip 0.25 mg b.i.d., Klonopin 0.5 b.i.d., Sinemet 25/100 two tabs b.i.d., Aldactone 25 b.i.d., simvastatin 20 every day, lisinopril 2.5 every day, carvedilol 6.25 every day, Plavix 75 every day. ALLERGIES: None known. SOCIAL HISTORY: Nonsmoker, currently resides in a rehab, working on a strengthening. REVIEW OF SYSTEMS: The patient reports easy bruising but reports no swollen glands. The patient reports no fever, no night sweats, no significant weight gain, no significant weight loss. No significant exercise tolerance. The patient reports no dry eyes, no irritation, no vision change. Patient reports no difficulty hearing and no ear pain. Patient reports no frequent nose bleeds or nose and sinus problems. Patient reports on arm pain on exertion. No shortness of breath while lying down. No history of heart murmur. Patient reports no cough, no wheezing or coughing up blood. Patient reports no abdominal pain, no vomiting. Normal appetite. No diarrhea and not vomiting blood. No nausea and no constipation. Patient reports no incontinence. No difficulty urinating. No hematuria. No increased frequency. Patient reports no muscle aches. No weakness, no arthralgias, no back pain. No swelling of the extremities. Patient reports no abnormal mole, no jaundice, no rashes. Reports no loss of consciousness. No weakness and no numbness. No seizures, dizziness, or headaches. The patient reports no depression, no sleep disturbance, feeling safe in a relationship and no alcohol abuse. Patient reports on fatigue. Reports no runny nose or sinus pressure. No itching, no hives, and no frequent sneezing. PHYSICAL EXAMINATION: GENERAL: Pleasant female in no acute distress, appears quite comfortable actually. VITAL SIGNS: Blood pressure 101/75, pulse 109 and regular. HEENT: Normocephalic, atraumatic. CONSULT REPORT [id number] SRIRAM JEAN NECK: No JVD or bruit. HEART: Regular. S3 gallop is noted. LUNGS: Good air excursion. ABDOMEN: Soft, nontender. EXTREMITIES: Pulses are 2+. There is trace edema. IMPRESSION: Plhes-ip-tokdhog systolic dysfunction responded nicely to 1 dose of IV diuretic. Reports, has been doing well with rehabilitation. No contraindication to discharge from my standpoint. TRANSINT:[id number] Voice Confirmation ID: [id number] DOCUMENT ID: [id number] JENNY DRUMMOND MD at 1351 CC: [id number] DICTATION DATE: 06/25/19 0856 DIRECTOR COMMERCIAL SALES: 06/25/19 0938 ADM IN [facility] [address] [place] [address]
[2019-06-25 17:05] VITALS: BP 110/74
--- NOTE | 2019-06-25 17:44 | MORECARE ---
CASE MANAGEMENT DISCHARGE SUMMARY PATIENT: SRIRAM JEAN [facility] UNIT: [id number] ADM DATE: 06/25/19 AGE: 84 : 36 SEX: F ROOM/BED: D.1655 AUTHOR: MELANIE GRIFFIN PHYSICIAN: REFERRING PHYSICIAN: ISABELLA CALABRESE MD DATE OF SERVICE: 06/25/19 Discharge Plan Patient Name: SRIRAM JEAN [facility] [facility] 1935 Planned Disposition: Home with Home Health Anticipated Discharge Date: Discharge Date: Expected LOS: Initial Reviewer: [email or web address] Initial Review Date: 06/25/2019 Generated: 06/25/19 6:43 pm Coverage Notice Reviewer: [id number] - Foster Wiggins Notice Issued Date-Time: 06/25/2019 17:20 Notice Type: IM Discharge Notice Notice Delivered To: Patient Relationship to Patient: Loss Prevention Representative Name: Delivery Method: HAND - Hand Delivered Tammy Days: Prior Verbal Notification: Recipient Understood Notice: Yes Recipient Signature: Yes Med Rec Note Co-signed by Attending: Coverage Notice Comment: [facility] Patient Name: SRIRAM JEAN Page [id number] at 1744 All edits/amendments must be made on the electronic document DICTATION DATE: 06/25/191742 FILTER BED PLACER: MADINA 06/25/191742 RPT#: [id number] DC DATE: STATUS: ADM IN [place] [address] [place] [address] END OF REPORT
--- NOTE | 2019-06-25 17:52 | MORECARE ---
CASE MANAGEMENT DISCHARGE SUMMARY PATIENT: SRIRAM JEAN [facility] UNIT: [id number] ADM DATE: 06/25/19 AGE: 84 : 36 SEX: F ROOM/BED: D.3209 AUTHOR: GABY,DOC PHYSICIAN: REFERRING PHYSICIAN: ISABELLA CALABRESE MD DATE OF SERVICE: 06/25/19 Discharge Plan Patient Name: SRIRAM JEAN Facility: [facility]:[place] : 1935 Planned Disposition: Home with Home Health Anticipated Discharge Date: Discharge Date: Expected LOS: Initial Reviewer: [email or web address] Initial Review Date: 06/25/2019 Generated: 06/25/19 6:51 pm Comments DCP- Discharge Planning Updated by [email or web address]: Foster Wiggins on 06/25/19 4:[address] Patient Name: SRIRAM JEAN Admission Status: ER Accout number: [id number] Admission Date: 06-25-2019 : 1935 Admission Diagnosis: Attending: ISABELLA CALABRESE Current LOS: 1 Anticipated DC Date: Planned Disposition: Home with Home Health Primary Insurance: MEDICARE A & B PLANNED EXTERNAL PROVIDER: [facility] Discharge Planning Comments: CM met with patient and her daughter Toña to complete initial dc planning assessment. SRIRAM JEAN provided verbal consent to discuss current and ongoing needs with/in the presence of: DAUGHTER, TOÑA. Patient lives at home and her daughter has been living with her since April because she has been in poor health and unable to care for herself. Daughter reports she will continue to stay with patient at home. Patient currently has [facility] out of [place] and if she returns home she wishes to resume at discharge. ANN MARIE form signed by patient for resumption of [facility]. At discharge patient's daughter reports patient will go home with resumption of home health. Toña states she will never place patient into a detention. Toña denied further known discharge needs at this time. . Transportation provider at discharge will be daughter. CM will continue to follow and will assist as needed with dc plans/needs. PATIENT PLANS TO DISCHARGE HOME AT DISCHARGE. PT'S DAUGHTER IS STAYING WITH PT. FOR DISCHARGE FAX ORDER AND DISCHARGE INFORMATION TO [facility] [place] OFFICE AT [phone], CALL AND NOTIFY [facility] OF DISCHARGE HOME AT [phone]. Credit Review Officer: Foster Wiggins [facility] - Discharge Planning Initial Assessment Updated by [email or web address]: Foster Wiggins on 06/25/19 5:45 pm * Is the patient Alert and Oriented? Yes * How many steps to enter\exit or inside your home? NONE * PCP DR. COSTLELO IN [place] * [facility]acy [facility] [place] * Preadmission Environment Home with Family * ADLs Partial Dependent * Partial ADLs (Assistance needed) Ambulation Bathing Medication Management Transfers * Equipment Elevated [place] Seat Grab Bars Other Oxygen Rolling Walker * Other Equipment ROLLATOR WALKER BLOOD PRESSURE CUFF TRANSFER BENCH HOME OXYGEN - [facility] IN [place], MEDICAL EQUIPMENT PROVIDER * List name and contact numbers for known caregivers / representatives who currently or will assist patient after discharge: TOÑA TORRES, R, * Verbal permission to speak to the caregivers and representatives has been obtained from the patient. Yes * Community resources currently utilized Home Health * Please name any agencies selected above. [facility] [place] * Additional services required to return to the preadmission environment? No * Can the patient safely return to the preadmission environment? Yes * Has this patient been hospitalized within the prior 30 days at any hospital? Yes Coverage Notice Reviewer: [id number] - Foster Wiggins Notice Issued Date-Time: 06/25/2019 17:20 Notice Type: IM Discharge Notice Notice Delivered To: Patient Relationship to Patient: Coil Tier Name: Delivery Method: HAND - Hand Delivered Tammy Days: Prior Verbal Notification: Recipient Understood Notice: Yes Recipient Signature: Yes Med Rec Note Co-signed by Attending: Coverage Notice Comment: [facility] Last DP export: 06/25/19 4:44 p Patient Name: SRIRAM JEAN Page 38020 at 1752 All edits/amendments must be made on the electronic document DICTATION DATE: 06/25/191750 CUSTOMER OPERATIONS REPRESENTATIVE: MADINA 06/25/191750 RPT#: [id number] DC DATE: STATUS: ADM IN [facility] [address] [place] [address] END OF REPORT
--- NOTE | 2019-06-25 19:15 | NUR ---
RECEIVED REPORT, WILL ASSUME CARE OF PT, PT UP IN RESTROOM, FAMILY ASKING ABOUT FLUID RESTRICTION, EXPLAIN THEY WANT ACCURATE I&O, NO HAT IN RESTROOM AT THIS TIME, PLACE HAT AND ASLO EXPLAIN I NEED A UA, ST-118-ON TELEMTRY, W.WRIST-IV-SL, PT BACK IN BED, DENIES ANY NEEDS, BED IS LOW, SRX2, CALL LIGHT IN REACH, WILL CONTINUE PLAN OF CARE
[2019-06-25 20:15] VITALS: BP 97/61
[2019-06-25] MEDS ORDERED: LEXAPRO20 MG PO (20:54)
--- NOTE | 2019-06-25 21:00 | NUR ---
PT DAUGHTER STATES PT TAKES LEXAPRO, WILL TELL DAYSHIFT NURSE TO SEE IF WE CAN GET IT RESTARTED
[2019-06-25 22:21] LABS: APPEARANCE CLEAR (CLEAR); BILIRUBIN NEGATIVE (NEGATIVE); COLOR YELLOW (YELLOW); GLUCOSE NEGATIVE (NEGATIVE); KETONE NEGATIVE (NEGATIVE); NITRITE NEGATIVE (NEGATIVE); PROTEIN 1+ mg/dL (NEGATIVE); UROBILINOGEN NORMAL (NORMAL)
[2019-06-25 22:22] LABS: BACTERIA FEW /hpf (NEGATIVE); EPITHELIAL CELLS 0-5 /hpf (0-5); RED CELLS - URINE OCC /hpf (0-5); WHITE CELLS - URINE 0-5 /hpf (NEGATIVE)
--- NOTE | 2019-06-25 22:54 | NUR ---
SPOKE WITH FREEDOM MELARA, WAS TOLD TO RESTART 20MG LEXAPRO QHS
[2019-06-26 00:29] VITALS: BP 98/66
[2019-06-26 04:15] VITALS: BP 102/67
[2019-06-26 08:19] VITALS: BP 101/66
--- NOTE | 2019-06-26 08:35 | NUR ---
CALLED PHARMACY AND SPOKE WITH SARA, INFORMED HER THAT I NEED SODIUM BICARB TABLETS FOR PT. [facility] IS SAYING THERE ARE SOME STOCK BUT NON AVAILABLE.
--- NOTE | 2019-06-26 09:32 | NUR ---
RT WRIST IV NOT WORKING. NEW 20G IV STARTED TO LT FA X1, DOBUTAMINE STARTED TO INFUSE AT 5.3ML/HR. PT RESTING COMFORTABLY IN BED, DENIES ANY NEEDS AT THIS TIME.C ALL LIGHT IN REACH, NAD NOTED, WILL CONTINUE TO MONITOR.
[2019-06-26 11:43] VITALS: BP 110/70
--- NOTE | 2019-06-26 11:58 | NUR ---
PT TO NUCLEAR MED AT THIS TIME, VIA WHEELCHAIR,NAD NOTED.
--- NOTE | 2019-06-26 15:21 | NUR ---
PT UP TO SIDE OF THE BED, WATCHING TV, DENIES ANY NEEDS AT THIS TIME. CALL LIGHT IN REACH, DAUGHTER AT BEDSIDE, NAD NOTED,WILL CONTINUE TO MONITOR.
[2019-06-26 16:00] VITALS: BP 106/62
--- NOTE | 2019-06-26 19:15 | NUR ---
RECEIVED REPORT, WILL ASSUME CARE OF PT, DENIES ANY NEEDS AT THIS TIME, DAUGHTER AT BEDSIDE ASKING QUESTION ABOUT MEDS, PROVIDED INFORMATION, BT-BFV-HDZDRTOLA @ 5.3, [id number], BED IS LOW, SRX2, CALL LIGHT IN REACH, WILL CONTINUE PLAN OF CARE
[2019-06-26 20:33] VITALS: BP 103/69
[2019-06-27 00:35] VITALS: BP 99/59
--- NOTE | 2019-06-27 04:05 | NUR ---
I have reviewed this patient and I concur with the Shift Assessment completed by the Licensed Practical Nurse today this shift.
[2019-06-27 04:41] VITALS: BP 94/66
--- NOTE | 2019-06-27 07:15 | NUR ---
PT RESTING. DAUGHTER AT BEDSIDE. STATED PT HAS NOT BEEN EATING VERY WELL. DENIES NEEDS OR PAIN AT THIS TIME. RR EVEN AND UNLABORED. BED IN OWEST POSITION. CALL LIGHT WITHIN REACH. WILL CONTINUE TO MONITOR.
[2019-06-27 08:03] VITALS: BP 108/72
--- NOTE | 2019-06-27 10:26 | NUR ---
I have reviewed this patient and I concur with the Shift Assessment completed by the Licensed Practical Nurse today this shift.
[2019-06-27 12:02] VITALS: BP 112/76
[2019-06-27 16:36] VITALS: BP 99/67
--- NOTE | 2019-06-27 19:15 | NUR ---
RECEIVED REPORT, WILL ASSUME CARE OF PT, VISITING WITH DAUGHTER, DENIES ANY NEEDS, BED IS LOW, SRX2, CALL LIGHT IN REACH, WILL CONTINUE PLAN OF CARE
[2019-06-27 20:00] VITALS: BP 81/57
--- NOTE | 2019-06-28 03:53 | NUR ---
I have reviewed this patient and I concur with the Shift Assessment completed by the Licensed Practical Nurse today this shift.
[2019-06-28 04:00] VITALS: BP 86/54
[2019-06-28 05:38] LABS: BASOPHILS 0.2 % (0-2); EOSINOPHILS 0 % (0-7); HEMATOCRIT 38.1 % (36.0-48.0); IMMATURE GRANULOCYTES 0.6 % (0-5); LYMPHOCYTES 16.6 % (15-50); MCH 30.8 pg (26.0-34.0); MCHC 31.5 g/dL (31.0-37.0); MCV 97.9 fL (80.0-100.0); MEAN PLATELET VOLUME 11.2 fL (7.4-10.4); MONOCYTES 9.6 % (2-11); PLATELET COUNT 177 10x3/uL (130-400); RBC 3.89 10x6/uL (4.00-5.40); RDW 15.5 % (11.5-14.5); WBC 5.1 10x3/uL (4.8-10.8)
[2019-06-28 05:44] LABS: ANION GAP 8.3 mmol/L (8-16); CALCIUM 7.9 mg/dL (8.5-10.1); CARBON DIOXIDE 34.6 mmol/L (21.0-32.0); CREATININE - SERUM 1.4 mg/dL (0.6-1.3); POTASSIUM - SERUM 3.9 mmol/L (3.5-5.1)
--- NOTE | 2019-06-28 07:34 | NUR ---
PT RESTING. DENIES NEEDS OR PAIN AT THIS TIME. RR EVEN AND UNLABORED. BED IN LOWEST POSITION. CALL LIGHT WITHIN REACH. DAUGHTER AT BEDSIDE. WILL CONTINUE TO MONITOR.
[2019-06-28 08:00] VITALS: BP 97/64
--- NOTE | 2019-06-28 15:09 | NUR ---
Nutrition Follow-up: Daughter reports appetite improving although PO intake record probably not accurate 2/2 daughter eating leftover food. Eating soup and drinking Boost. +nausea. Diet: Cardiac Wt: 126# (down from 135.5# on 06/25; diuresing) Labs reviewed Meds reviewed -Continue current diet as tolerated. -Offer nutrition supplements with meals. -RD following.
--- NOTE | 2019-06-28 15:14 | NUR ---
OT NOTE: PT COMPLETED COMPLETED SUPINE TO SIT WITH MIN A. PT COMPLETED ADL MOB WITH HH ASSIST. PT COMPLETED UB HYGIENE/GROOMING WITH SETUP. THANK YOU,CHAVA YIN
--- NOTE | 2019-06-28 19:30 | NUR ---
RECEIVED BEDSIDE REPORT. PATIENT IS ALERT AND ORIENTED, RESPIRATIONS ARE EVEN AND UNLABORED. PATIENT REMAINS ON 3L NC. NO S/S OF DISTRESS. NO C/O PAIN. NEEDS MET. CALL LIGHT WITHIN REACH. WILL CPOC.
[2019-06-28 20:00] VITALS: BP 88/64
[2019-06-29] VITALS: BP 95/57
[2019-06-29 04:25] VITALS: BP 92/68
[2019-06-29 05:22] LABS: BASOPHILS 0.2 % (0-2); EOSINOPHILS 0 % (0-7); HEMATOCRIT 39.8 % (36.0-48.0); HEMOGLOBIN 12.4 g/dL (12-16); IMMATURE GRANULOCYTES 0.5 % (0-5); LYMPHOCYTES 20.4 % (15-50); MCH 30.7 pg (26.0-34.0); MCHC 31.2 g/dL (31.0-37.0); MCV 98.5 fL (80.0-100.0); MEAN PLATELET VOLUME 10.3 fL (7.4-10.4); MONOCYTES 7.7 % (2-11); NEUTROPHILS 71.2 % (40-80); PLATELET COUNT 207 10x3/uL (130-400); RBC 4.04 10x6/uL (4.00-5.40); RDW 15.6 % (11.5-14.5); WBC 5.7 10x3/uL (4.8-10.8)
[2019-06-29 05:43] LABS: ANION GAP 8.3 mmol/L (8-16); CALCIUM 8.5 mg/dL (8.5-10.1); CREATININE - SERUM 1.5 mg/dL (0.6-1.3); POTASSIUM - SERUM 4.3 mmol/L (3.5-5.1)
[2019-06-29 08:50] VITALS: BP 94/65
[2019-06-29 12:36] VITALS: BP 110/56
[2019-06-29] MEDS ORDERED: TESSALON PERLE100 MG PO (12:41)
--- NOTE | 2019-06-29 14:27 | MORECARE ---
CASE MANAGEMENT DISCHARGE SUMMARY PATIENT: SRIRAM JEAN [facility] UNIT: [id number] ADM DATE: 06/25/19 AGE: 84 : 36 SEX: F ROOM/BED: D.9297 AUTHOR: MELANIE GRIFFIN PHYSICIAN: REFERRING PHYSICIAN: ISABELLA CALABRESE MD DATE OF SERVICE: 06/29/19 Discharge Plan Patient Name: SRIRAM JEAN Facility: [facility]:[place] : 1935 Planned Disposition: Home with Home Health Anticipated Discharge Date: 06/29/19 Discharge Date: Expected LOS: 4 Initial Reviewer: [email or web address] Initial Review Date: 06/25/2019 Generated: 06/29/19 3:26 pm DCP- Discharge Planning Updated by [email or web address]: Foster Wiggins on 06/25/19 4:[address] Patient Name: SRIRAM JEAN Admission Status: ER Accout number: [id number] Admission Date: 06-25-2019 : 1935 Admission Diagnosis: Attending: ISABELLA CALABRESE Current LOS: 1 Anticipated DC Date: Planned Disposition: Home with Home Health Primary Insurance: MEDICARE A & B PLANNED EXTERNAL PROVIDER: [facility] Discharge Planning Comments: CM met with patient and her daughter Toña to complete initial dc planning assessment. SRIRAM JEAN provided verbal consent to discuss current and ongoing needs with/in the presence of: DAUGHTER, TOÑA. Patient lives at home and her daughter has been living with her since April because she has been in poor health and unable to care for herself. Daughter reports she will continue to stay with patient at home. Patient currently has [facility] out of [place] and if she returns home she wishes to resume at discharge. ANN MARIE form signed by patient for resumption of [facility]. At discharge patient's daughter reports patient will go home with resumption of home health. Toña states she will never place patient into a longterm. Toña denied further known discharge needs at this time. . Transportation provider at discharge will be daughter. CM will continue to follow and will assist as needed with dc plans/needs. PATIENT PLANS TO DISCHARGE HOME AT DISCHARGE. PT'S DAUGHTER IS STAYING WITH PT. FOR DISCHARGE FAX ORDER AND DISCHARGE INFORMATION TO [facility] OFFICE AT [phone], CALL AND NOTIFY [facility] OF DISCHARGE HOME AT [phone]. Store Shopper: Foster Wiggins [facility]charge Planning Initial Assessment Updated by [email or web address]: Foster Wiggins on 06/25/19 5:45 pm * Is the patient Alert and Oriented? Yes * How many steps to enter\exit or inside your home? NONE * PCP DR. COSTELLO IN [place] * Pharmacy [facility] [place] * Preadmission Environment Home with Family * ADLs Partial Dependent * Partial ADLs (Assistance needed) Ambulation Bathing Medication Management Transfers * Equipment Elevated [place] Seat Grab Bars Other Oxygen Rolling Walker * Other Equipment ROLLATOR WALKER BLOOD PRESSURE CUFF TRANSFER BENCH HOME OXYGEN - [facility] IN [place], MEDICAL EQUIPMENT PROVIDER * List name and contact numbers for known caregivers / representatives who currently or will assist patient after discharge: TOÑA TORRES, DTR, * Verbal permission to speak to the caregivers and representatives has been obtained from the patient. Yes * Community resources currently utilized Home Health * Please name any agencies selected above. [facility] [place] * Additional services required to return to the preadmission environment? No * Can the patient safely return to the preadmission environment? Yes * Has this patient been hospitalized within the prior 30 days at any hospital? Yes Coverage Notice Reviewer: [id number] - Foster Wiggins Notice Issued Date-Time: 06/25/2019 17:20 Notice Type: IM Discharge Notice Notice Delivered To: Patient Relationship to Patient: Bingo Usher Name: Delivery Method: HAND - Hand Delivered Tammy Days: Prior Verbal Notification: Recipient Understood Notice: Yes Recipient Signature: Yes Med Rec Note Co-signed by Attending: Coverage Notice Comment: [facility] Reviewer: [email or web address] Fabi Foreman Notice Issued Date-Time: 06/29/2019 12:55 Notice Type: IM Discharge Notice Notice Delivered To: Patient Relationship to Patient: Bingo Usher Name: Delivery Method: HAND - Hand Delivered Tammy Days: Prior Verbal Notification: Recipient Understood Notice: Recipient Signature: Med Rec Note Co-signed by Attending: Coverage Notice Comment: Last DP export: 06/25/19 4:52 p Patient Name: SRIRAM JEAN Page 36014 at 1427 All edits/amendments must be made on the electronic document DICTATION DATE: 06/29/191425 SAT MATH TUTOR: MADINA 06/29/191425 RPT#: [id number] DC DATE: STATUS: ADM IN [facility] [address] [place] [address] END OF REPORT
--- NOTE | 2019-06-29 14:27 | NUR ---
PT DISCHARGED HOME VIA WHEELCHAIR WITH FAMILY. TELEMETRY REMOVED AND RETURNED. PT SIGNED PROPER DISCHARGE INSTRUCTIONS AND REMOVED ALL VALUABLES FROM THE ROOM.
--- NOTE | 2019-06-29 14:35 | MORECARE ---
CASE MANAGEMENT DISCHARGE SUMMARY PATIENT: SRIRAM JEAN [facility] UNIT: [id number] ADM DATE: 06/25/19 AGE: 84 : 36 SEX: F ROOM/BED: D.4040 AUTHOR: MELANIE GRIFFIN PHYSICIAN: REFERRING PHYSICIAN: ISABELLA CALABRESE MD DATE OF SERVICE: 06/29/19 Discharge Plan Patient Name: SRIRAM JEAN Facility: [facility]:[place] : 1935 Planned Disposition: Home with Home Health Anticipated Discharge Date: 06/29/19 Discharge Date: 06/29/2019 Expected LOS: 4 Initial Reviewer: [email or web address] Initial Review Date: 06/25/2019 Generated: 06/29/19 3:34 pm DCP- Discharge Planning Updated by [id number]: Foster Wiggins on 06/25/19 4:[address] Patient Name: SRIRAM JEAN Admission Status: ER Accout number: [id number] Admission Date: 06-25-2019 : 1935 Admission Diagnosis: Attending: ISABELLA CALABRESE Current LOS: 1 Anticipated DC Date: Planned Disposition: Home with Home Health Primary Insurance: MEDICARE A & B PLANNED EXTERNAL PROVIDER: [email or web address] Discharge Planning Comments: CM met with patient and her daughter Toña to complete initial dc planning assessment. SRIRAM JEAN provided verbal consent to discuss current and ongoing needs with/in the presence of: DAUGHTER, TOÑA. Patient lives at home and her daughter has been living with her since April because she has been in poor health and unable to care for herself. Daughter reports she will continue to stay with patient at home. Patient currently has [facility] out of [place] and if she returns home she wishes to resume at discharge. ANN MARIE form signed by patient for resumption of [facility]. At discharge patient's daughter reports patient will go home with resumption of home health. Toña states she will never place patient into a longterm. Toña denied further known discharge needs at this time. . Transportation provider at discharge will be daughter. CM will continue to follow and will assist as needed with dc plans/needs. PATIENT PLANS TO DISCHARGE HOME AT DISCHARGE. PT'S DAUGHTER IS STAYING WITH PT. FOR DISCHARGE FAX ORDER AND DISCHARGE INFORMATION TO [facility] OFFICE AT [phone], CALL AND NOTIFY [facility] OF DISCHARGE HOME AT [phone]. Coal Hauler: Foster Wiggins [facility] - Discharge Planning Initial Assessment Updated by [id number]: Foster Wiggins on 06/25/19 5:45 pm * Is the patient Alert and Oriented? Yes * How many steps to enter\exit or inside your home? NONE * PCP DR. COSTELLO IN [place] * Pharmacy [facility] [place] * Preadmission Environment Home with Family * ADLs Partial Dependent * Partial ADLs (Assistance needed) Ambulation Bathing Medication Management Transfers * Equipment Elevated [place] Seat Grab Bars Other Oxygen Rolling Walker * Other Equipment ROLLATOR WALKER BLOOD PRESSURE CUFF TRANSFER BENCH HOME OXYGEN - [facility] IN [place], MEDICAL EQUIPMENT PROVIDER * List name and contact numbers for known caregivers / representatives who currently or will assist patient after discharge: TOÑA TORRES, DTR, * Verbal permission to speak to the caregivers and representatives has been obtained from the patient. Yes * Community resources currently utilized Home Health * Please name any agencies selected above. [facility] [place] * Additional services required to return to the preadmission environment? No * Can the patient safely return to the preadmission environment? Yes * Has this patient been hospitalized within the prior 30 days at any hospital? Yes External Providers External Provider: [facility] Next Contact Date: 06/29/2019 Service Request Date: Service Type: Resolution: Reviewer: Comments: Coverage Notice Reviewer: [id number] - Foster Wiggins Notice Issued Date-Time: 06/25/2019 17:20 Notice Type: IM Discharge Notice Notice Delivered To: Patient Relationship to Patient: Distiller Name: Delivery Method: HAND - Hand Delivered Tammy Days: Prior Verbal Notification: Recipient Understood Notice: Yes Recipient Signature: Yes Med Rec Note Co-signed by Attending: Coverage Notice Comment: [facility] Reviewer: [email or web address] Fabi Foreman Notice Issued Date-Time: 06/29/2019 12:55 Notice Type: IM Discharge Notice Notice Delivered To: Patient Relationship to Patient: Distiller Name: Delivery Method: HAND - Hand Delivered Tammy Days: Prior Verbal Notification: Recipient Understood Notice: Recipient Signature: Med Rec Note Co-signed by Attending: Coverage Notice Comment: Last DP export: 06/25/19 4:52 p Patient Name: SRIRAM JEAN Page 62833 at 1435 All edits/amendments must be made on the electronic document DICTATION DATE: 06/29/191433 SHELLFISH GROWER: MADINA 06/29/191433 RPT#: [id number] DC DATE:06/29/19 STATUS: [facility] [address] [place] [address] END OF REPORT
--- NOTE | 2019-06-29 15:01 | MORECARE ---
CASE MANAGEMENT DISCHARGE SUMMARY PATIENT: SRIRAM JEAN [facility] UNIT: [id number] ADM DATE: 06/25/19 AGE: 84 : 37 SEX: F ROOM/BED: D.6410 AUTHOR: GABY,DOC PHYSICIAN: REFERRING PHYSICIAN: ISABELLA CALABRESE MD DATE OF SERVICE: 06/29/19 Discharge Plan Patient Name: SRIRAM JEAN Facility: [facility]:[place] : 1935 Planned Disposition: Home with Home Health Anticipated Discharge Date: 06/29/19 Discharge Date: 06/29/2019 Expected LOS: 4 Initial Reviewer: [id number] Initial Review Date: 06/25/2019 Generated: 06/29/19 4:00 pm Comments DCP- Discharge Planning Updated by [email or web address]: Foster Wiggins on 06/29/19 1:[address] Patient Name: SRIRAM JEAN Encounter No: [id number] : 1935 Primary Insurance: MEDICARE A & B Anticipated DC Date: 06-29-2019 Planned Disposition: Home with Home Health External Planned Provider: [facility] Discharge Planning Comments: CM RECEIVED DISCHARGE ORDER, MET WITH PT AND DAUGHTER IN ROOM TO DISCUSS DISCHARGE PLANNING AND NEEDS. PT'S DAUGHTER TAKING PT HOME WITH [facility].. PT'S DAUGHTER IS STAYING WITH PT AT HOME. IMPORTANT MESSAGE FROM MEDICARE PROVIDED AND EXPLAINED. CM FAXED REFERRAL AND DISCHARGE INFORMATION TO [facility] AT [phone], CALLED AND AND NOTIFIED ALBERT[facility] OF [facility] AT [phone]. Signs Sales Representative: Foster Wiggisn DCP- Discharge Planning Updated by [email or web address]: Foster Wiggins on 06/25/19 4:[address] Patient Name: SRIRAM JEAN Admission Status: ER Accout number: [id number] Admission Date: 06-25-2019 : 1935 Admission Diagnosis: Attending: ISABELLA CALABRESE Current LOS: 1 Anticipated DC Date: Planned Disposition: Home with Home Health Primary Insurance: MEDICARE A & B PLANNED EXTERNAL PROVIDER: [facility] Discharge Planning Comments: CM met with patient and her daughter Toña to complete initial dc planning assessment. SRIRAM JEAN provided verbal consent to discuss current and ongoing needs with/in the presence of: DAUGHTER, TOÑA. Patient lives at home and her daughter has been living with her since April because she has been in poor health and unable to care for herself. Daughter reports she will continue to stay with patient at home. Patient currently has [facility] out of [place] and if she returns home she wishes to resume at discharge. ANN MARIE form signed by patient for resumption of [facility]. At discharge patient's daughter reports patient will go home with resumption of home health. Toña states she will never place patient into a skilled nursing. Toña denied further known discharge needs at this time. . Transportation provider at discharge will be daughter. CM will continue to follow and will assist as needed with dc plans/needs. PATIENT PLANS TO DISCHARGE HOME AT DISCHARGE. PT'S DAUGHTER IS STAYING WITH PT. FOR DISCHARGE FAX ORDER AND DISCHARGE INFORMATION TO [facility] AT [phone], CALL AND NOTIFY [facility] AT [phone]. Signs Sales Representative: Foster Wiggins COPIA - Discharge Planning Initial Assessment Updated by [email or web address]: Foster Wiggins on 06/25/19 5:45 pm * Is the patient Alert and Oriented? Yes * How many steps to enter\exit or inside your home? NONE * PCP DR. COSTELLO [place] * Pharmacy [facility] [place] * Preadmission Environment Home with Family * ADLs Partial Dependent * Partial ADLs (Assistance needed) Ambulation Bathing Medication Management Transfers * Equipment Elevated [place] Seat Grab Bars Other Oxygen Rolling Walker * Other Equipment ROLLATOR WALKER BLOOD PRESSURE CUFF TRANSFER [facility] - [facility] [place], MEDICAL EQUIPMENT PROVIDER * List name and contact numbers for known caregivers / representatives who currently or will assist patient after discharge: TOÑA BRIAN, DTR, * Verbal permission to speak to the caregivers and representatives has been obtained from the patient. Yes * Community resources currently utilized Home Health * Please name any agencies selected above. [facility] [place] * Additional services required to return to the preadmission environment? No * Can the patient safely return to the preadmission environment? Yes * Has this patient been hospitalized within the prior 30 days at any hospital? Yes Coverage Notice Reviewer: [id number] - Foster Wiggins Notice Issued Date-Time: 06/25/2019 17:20 Notice Type: IM Discharge Notice Notice Delivered To: Patient Relationship to Patient: Ethyl Blender Name: Delivery Method: HAND - Hand Delivered Tammy Days: Prior Verbal Notification: Recipient Understood Notice: Yes Recipient Signature: Yes Med Rec Note Co-signed by Attending: Coverage Notice Comment: [facility] Reviewer: [id number] Fabi Foreman Notice Issued Date-Time: 06/29/2019 12:55 Notice Type: IM Discharge Notice Notice Delivered To: Patient Relationship to Patient: Ethyl Blender Name: Delivery Method: HAND - Hand Delivered Tammy Days: Prior Verbal Notification: Recipient Understood Notice: Recipient Signature: Med Rec Note Co-signed by Attending: Coverage Notice Comment: Last DP export: 06/29/19 1:35 Patient Name: SRIRAM JEAN Page [phone] at 1501 All edits/amendments must be made on the electronic document DICTATION DATE: 06/29/191499 ELEMENT[employer] SCIENCE TEACHER: MADINA 06/29/19 1500 RPT#: [id number] DC DATE:06/29/19 STATUS: DIS IN [facility] [address] [place] [address] END OF REPORT
== END 2019-06-29 14:28 | disposition home health service (06) | DRG 292 ==
LOC: D.ER 04:14 → D.M2 04:33 → D.SDCHOLD 15:10 → D.M2 15:10
PROVIDERS: ADMIT Internal Medicine Nephrology; ATTEND Internal Medicine Nephrology
DX: I11.0 Hypertensive heart disease with heart failure (principal); J96.11 Chronic respiratory failure with hypoxia; I50.23 Acute on chronic systolic (congestive) heart failure; I42.9 Cardiomyopathy, unspecified; E78.5 Hyperlipidemia, unspecified; I25.10 Atherosclerotic heart disease of native coronary artery without angina pectoris; J44.9 Chronic obstructive pulmonary disease, unspecified